=== PATIENT | male | born 1955 | race Caucasian/White ===

== ENCOUNTER 2020-02-10 22:51 | Emergency (ER) | payer BC ==
[~2020-02-10] VITALS: Ht 172.7 cm; Wt 65.0 kg
[2020-02-10] MEDS ORDERED: methylPREDNISolone sod succ 125mg/2ml vial IV ONE (23:20)
[2020-02-10] MEDS ORDERED: ipratropium/albuterol 3ml nebule NEB ONE (23:20)
[2020-02-10] MEDS ORDERED: triamcinolone acetonide 40mg/ml inj IM ONE (23:20)
[2020-02-10 23:43] LABS: BASOPHILS # (AUTO) 0.2 X10'3 (0-0.2); EOSINOPHILS # (AUTO) 0.5 X10'3 (0-0.9); EOSINOPHILS % (AUTO) 3.2 % (0-6); HEMATOCRIT 50.4 % (42.0-52.0); HEMOGLOBIN 16.7 g/dl (14.0-17.9); LYMPHOCYTES # (AUTO) 4.3 X10'3 (1.1-4.8); LYMPHOCYTES % (AUTO) 28.9 % (21-51); MEAN CORPUSCULAR HEMOGLOBIN 31.2 PG (27.0-31.0); MEAN CORPUSCULAR HGB CONC 33.1 g/dL (33.0-36.5); MEAN CORPUSCULAR VOLUME 94.4 FL (78-98); MEAN PLATELET VOLUME 8.1 FL (7.4-10.4); MONOCYTES # (AUTO) 1.1 X10'3 (0-0.9); MONOCYTES % (AUTO) 7.4 % (2-12); NEUTROPHILS # (AUTO) 8.9 X10'3 (1.8-7.7); NEUTROPHILS % (AUTO) 59.5 % (42-75); PLATELET COUNT 266 X10'3 (140-440); RED BLOOD COUNT 5.34 X10'6 (4.70-6.10); RED CELL DISTRIBUTION WIDTH 13.8 % (11.5-14.5); WHITE BLOOD COUNT 14.9 X10'3 (4.5-11.0)
[2020-02-11 00:02] LABS: ALANINE AMINOTRANSFERASE 32 U/L (12-78); ALBUMIN 3.6 G/DL (3.4-5.0); ALBUMIN/GLOBULIN RATIO 0.9 (1.1-1.5); ALKALINE PHOSPHATASE 88 IU/L (46-116); ANION GAP 7 (8-16); ASPARTATE AMINO TRANSFERASE 13 U/L (10-37); BILIRUBIN,TOTAL 0.2 MG/DL (0.1-1.0); BLOOD UREA NITROGEN 25 MG/DL (7-18); BUN/CREATININE RATIO 22.3 (5.4-32.0); CALCIUM 9.1 MG/DL (8.5-10.1); CHLORIDE 108 MMOL/L (99-107); CREATININE 1.12 MG/DL (0.60-1.10); GLUCOSE 94 MG/DL (70-104); POTASSIUM 3.7 MMOL/L (3.5-5.1); SODIUM 143 MMOL/L (135-145); TOTAL CARBON DIOXIDE 28.3 MMOL/L (24-32); TOTAL PROTEIN 7.5 G/DL (6.4-8.2); eGFR 66 ML/MIN
[2020-02-11] MEDS ORDERED: FLUT1BLS4 INH (00:03)
[2020-02-11] MEDS ORDERED: AZIT-63 PO (00:04)
[2020-02-11 00:14] VITALS: BP 169/80
== END 2020-02-11 00:18 | disposition home or self-care (01) ==
LOC: ER 22:52
DX: J44.1 Chronic obstructive pulmonary disease with (acute) exacerbation (principal); R06.02 Shortness of breath; R06.2 Wheezing; G89.29 Other chronic pain
CPT/HCPCS: 36415; 71045; 80053; 83880; 84484; 85025; 93005; 94640; 96372; 96374; 99285; J2930; J3301; 94760

== ENCOUNTER 2020-06-05 14:44 | Emergency (ER) | payer BC ==
[~2020-06-05] VITALS: Ht 172.7 cm; Wt 69.1 kg
[~2020-06-05 14:44] MED LIST: FLUT1BLS4 INH
[2020-06-05] MEDS ORDERED: triamcinolone acetonide 40mg/ml inj IM ONE (16:25)
[2020-06-05] MEDS ORDERED: IPRA3AMP31 IH (16:56)
[2020-06-05] MEDS ORDERED: PRED20TA PO (16:56)
[2020-06-05 17:02] VITALS: BP 146/77
== END 2020-06-05 17:12 | disposition home or self-care (01) ==
LOC: ER 14:45 → EDSEX 14:45 → ER 17:12
DX: R06.02 Shortness of breath (principal); J44.9 Chronic obstructive pulmonary disease, unspecified; G89.29 Other chronic pain; F17.200 Nicotine dependence, unspecified, uncomplicated; Z79.899 Other long term (current) drug therapy
CPT/HCPCS: 93005; 96372; 99283; J3301

== ENCOUNTER 2020-06-07 12:14 | Inpatient (IN) | payer BC ==
[~2020-06-07] VITALS: Ht 160 cm; Wt 66.2 kg
[~2020-06-07 12:14] MED LIST changes: +IPRA3AMP31 IH; +PRED20TA PO
[2020-06-07] MEDS ORDERED: ipratropium 0.5 MG/2.5ML nebule IH ONE (12:25)
[2020-06-07] MEDS ORDERED: nitroGLYCERIN-Tridil 50MG/D5W 250 ML IV PRN (12:25)
[2020-06-07] MEDS ORDERED: methylPREDNISolone sod succ 125mg/2ml vial IV ONE (12:35)
[2020-06-07 12:36] LABS: ABG BASE EXCESS -4.9 mmol/L (-2.0-2.0); ABG HCO3 25.1 mmol/L (22.0-26.0); ABG OXYGEN SATURATION 98.7 % (94-97); ABG PO2 (T) 168.4 mmHg (75.0-100.0); ALLEN'S TEST POSITIVE; FCOHb 0.4 % (0.0-3.9); FMetHb 0.4 % (0.0-1.5); FO2Hb 97.9 % (94-97); RESPIRATORY RATE 18 b/min; TOTAL HEMOGLOBIN 17.1 G/dl (12.0-16.0)
[2020-06-07] MEDS: albuterol 2.5 MG/3 ML nebule CONTNEB PRN ×2 (12:37→14:09)
[2020-06-07 12:41] LABS: BASOPHILS # (AUTO) 0.1 X10'3 (0-0.2); BASOPHILS % (AUTO) 0.5 % (0-1); EOSINOPHILS # (AUTO) 0.2 X10'3 (0-0.9); EOSINOPHILS % (AUTO) 1.4 % (0-6); HEMATOCRIT 50.7 % (35.0-45.0); HEMOGLOBIN 16.8 g/dl (12.0-16.0); LYMPHOCYTES # (AUTO) 3.7 X10'3 (1.1-4.8); LYMPHOCYTES % (AUTO) 29.9 % (21-51); MEAN CORPUSCULAR HEMOGLOBIN 31.6 PG (27.0-31.0); MEAN CORPUSCULAR HGB CONC 33.1 g/dL (33.0-36.5); MEAN CORPUSCULAR VOLUME 95.3 FL (78-98); MEAN PLATELET VOLUME 8.5 FL (7.4-10.4); MONOCYTES # (AUTO) 1.1 X10'3 (0-0.9); MONOCYTES % (AUTO) 8.8 % (2-12); NEUTROPHILS # (AUTO) 7.3 X10'3 (1.8-7.7); NEUTROPHILS % (AUTO) 59.4 % (42-75); PLATELET COUNT 318 X10'3 (140-440); RED BLOOD COUNT 5.31 X10'6 (4.20-5.60); RED CELL DISTRIBUTION WIDTH 13.6 % (11.5-14.5); WHITE BLOOD COUNT 12.2 X10'3 (4.5-11.0)
[2020-06-07 12:58] LABS: MAGNESIUM 2.3 MG/DL (1.5-2.4)
[2020-06-07 13:17] LABS: ALANINE AMINOTRANSFERASE 52 U/L (12-78); ALBUMIN/GLOBULIN RATIO 0.9 (1.1-1.5); ALKALINE PHOSPHATASE 104 IU/L (46-116); ANION GAP 9 (8-16); ASPARTATE AMINO TRANSFERASE 27 U/L (10-37); BILIRUBIN,TOTAL 0.3 MG/DL (0.1-1.0); BLOOD UREA NITROGEN 20 MG/DL (7-18); CALCIUM 9.8 MG/DL (8.5-10.1); CHLORIDE 107 MMOL/L (99-107); GLUCOSE 211 MG/DL (70-104); POTASSIUM 3.9 MMOL/L (3.5-5.1); SODIUM 144 MMOL/L (135-145); TOTAL CARBON DIOXIDE 28.1 MMOL/L (24-32); TOTAL PROTEIN 8.3 G/DL (6.4-8.2); eGFR 55 ML/MIN
[2020-06-07 14:00] LABS: ABG BASE EXCESS -1.9 mmol/L (-2.0-2.0); ABG OXYGEN SATURATION 94.1 % (94-97); ABG PCO2 (T) 49.8 mmHg (32.0-45.0); ABG PO2 (T) 74.7 mmHg (75.0-100.0); ALLEN'S TEST POSITIVE; FCOHb 0.3 % (0.0-3.9); FMetHb 0.2 % (0.0-1.5); FO2Hb 93.6 % (94-97); RESPIRATORY RATE 18 b/min; TOTAL HEMOGLOBIN 16.9 G/dl (12.0-16.0)
[2020-06-07] MEDS ORDERED: albuterol 2.5 MG/3 ML nebule CONTNEB PRN (14:10)
[2020-06-07] MEDS ORDERED: HYDROcodone/acetaminophen 10/325mg tab PO PRN (14:30)
[2020-06-07] MEDS ORDERED: potassium Cl 20 mEq SR tablet PO PRN ×2 (14:30)
[2020-06-07] MEDS ORDERED: magnesium Cl slow-release 64mg tablet PO PRN (14:30)
[2020-06-07] MEDS ORDERED: ondansetron/PF 4mg/2ml inj IV PRN (14:30)
[2020-06-07] MEDS ORDERED: bisacodyl 10mg suppository rectal RC PRN (14:30)
[2020-06-07] MEDS ORDERED: mag hydrox/Alum hydrox/simeth 30ml oral suspension PO PRN (14:30)
[2020-06-07] MEDS ORDERED: magnesium 4gm in 100ml NS 100 ML IV PRN (14:30)
[2020-06-07] MEDS ORDERED: magnesium hydroxide 30ml (MOM) UD suspension PO PRN (14:30)
[2020-06-07] MEDS ORDERED: HYDROcodone/acetaminophen 5mg/325mg tablet PO PRN (14:30)
[2020-06-07] MEDS ORDERED: potassium CL 10mEq/100ml bag 100 ML IV PRN ×2 (14:30)
[2020-06-07] MEDS ORDERED: metoclopramide 5 mg/ml inj IV PRN (14:30)
[2020-06-07] MEDS ORDERED: magnesium 2GM in 50ml NS 50 ML IV PRN (14:30)
[2020-06-07] MEDS ORDERED: acetaminophen 325mg tablet PO PRN ×2 (14:30)
--- NOTE | 2020-06-07 14:37 | NUR ---
Dr. Castro updated on pt BP. Ok with SBP <200 at this time.
[2020-06-07] MEDS: ipratropium/albuterol 3ml nebule NEB SCH ×3 (15:00→23:18)
[2020-06-07] MEDS ORDERED: FENT-90 TOP (15:08)
[2020-06-07] MEDS ORDERED: GABA-534 PO (15:08)
[2020-06-07] MEDS ORDERED: PRED20TA PO (15:08)
[2020-06-07] MEDS ORDERED: ALBU6.7H9 IH (15:08)
[2020-06-07] MEDS ORDERED: OXYC1TAB17 PO (15:09)
--- NOTE | 2020-06-07 15:22 | NUR ---
Patient in room ED 5. I have received report from Stephanie TOLEDO and had the opportunity to ask questions and assume patient care.
[2020-06-07 16:00] VITALS: BP 164/90
--- NOTE | 2020-06-07 16:00 | NUR ---
Pt arrived to room 3013A. Pt's vitals; 164/99, HR 110, RR 28, O2 98% on bipap 50% FIo2. Will continue to monitor Pt.
[2020-06-07] MEDS: normal saline 1000ml 1,000 ML IV SCH (16:19)
--- NOTE | 2020-06-07 16:23 | NUR ---
PAGER ID: [phone] MESSAGE: Re: Cindi Breen. Room: 301. Do you want blood cultures drawn before I give the antibiotics? -Dao [facility] #[id number] Dr. Chamorro paged concerning blood cultures and first set of ABX
[2020-06-07] MEDS: CefTRIAXone/D5W-Rocephin 1gm 50 ML IV SCH (16:53)
[2020-06-07] MEDS: HYDROmorphone inj. 0.5 MG/0.5 ML DISP.SYRIN IV PRN (17:42)
[2020-06-07 18:00] VITALS: BP_SYST 161; BP_SYST 84; BP_DIAS 121; BP_DIAS 54
--- NOTE | 2020-06-07 18:25 | NUR ---
Patient in room PCU 3013. I have received report from Dao TOLDEO and had the opportunity to ask questions and assume patient care.
--- NOTE | 2020-06-07 18:32 | NUR ---
Problems reprioritized. Patient report given, questions answered & plan of care reviewed with Sebastien TOLEDO.
[2020-06-07] MEDS: azithromycin/NS 500mg/250ml 250 ML IV SCH (19:05)
[2020-06-07] MEDS: methylPREDNISolone sod succ 125mg/2ml vial IV SCH (19:06)
[2020-06-07] MEDS: famotidine/PF 10 mg/ml inj IV SCH (19:06)
[2020-06-07] MEDS: fentaNYL 12 MCG/hour patch.TD72 TD SCH (19:29)
[2020-06-07] MEDS ORDERED: methylPREDNISolone sod succ 125mg/2ml vial IV SCH (20:00)
[2020-06-07] MEDS ORDERED: famotidine 20mg tablet PO SCH (20:00)
[2020-06-07] MEDS: K and/or MAG REPLACEMENT MC SCH (20:00)
[2020-06-07] MEDS ORDERED: temazepam 15mg capsule PO PRN (21:00)
[2020-06-07 22:00] VITALS: BP 146/83
[2020-06-07] MEDS: oxyCODONE/APAP 10/325mg tablet PO PRN ×2 (22:47→23:43)
[2020-06-07] MEDS: LORazepam 0.5 MG tablet PO PRN (23:00)
[2020-06-08] VITALS (7 sets, daily range): BP systolic 127–198; BP diastolic 63–88
[2020-06-08] MEDS: methylPREDNISolone sod succ 125mg/2ml vial IV SCH ×4 (01:24→19:36)
[2020-06-08 01:30] LABS: BASOPHILS % (AUTO) 0.1 % (0-1); EOSINOPHILS % (AUTO) 0 % (0-6); HEMATOCRIT 46.3 % (35.0-45.0); HEMOGLOBIN 15.3 g/dl (12.0-16.0); LYMPHOCYTES # (AUTO) 0.4 X10'3 (1.1-4.8); LYMPHOCYTES % (AUTO) 3.4 % (21-51); MEAN CORPUSCULAR HEMOGLOBIN 31.5 PG (27.0-31.0); MEAN CORPUSCULAR HGB CONC 33.1 g/dL (33.0-36.5); MEAN PLATELET VOLUME 8.4 FL (7.4-10.4); MONOCYTES # (AUTO) 0.2 X10'3 (0-0.9); MONOCYTES % (AUTO) 1.5 % (2-12); PLATELET COUNT 261 X10'3 (140-440); RED BLOOD COUNT 4.87 X10'6 (4.20-5.60); RED CELL DISTRIBUTION WIDTH 13.8 % (11.5-14.5); WHITE BLOOD COUNT 12.6 X10'3 (4.5-11.0)
[2020-06-08 01:44] LABS: ALANINE AMINOTRANSFERASE 44 U/L (12-78); ALBUMIN 3.5 G/DL (3.4-5.0); ALBUMIN/GLOBULIN RATIO 0.9 (1.1-1.5); ALKALINE PHOSPHATASE 90 IU/L (46-116); ANION GAP 8 (8-16); ASPARTATE AMINO TRANSFERASE 19 U/L (10-37); BILIRUBIN,TOTAL 0.3 MG/DL (0.1-1.0); BLOOD UREA NITROGEN 16 MG/DL (7-18); BUN/CREATININE RATIO 16.3 (6.6-38.0); CHLORIDE 107 MMOL/L (99-107); CREATININE 0.98 MG/DL (0.40-0.90); GLUCOSE 231 MG/DL (70-104); POTASSIUM 4.3 MMOL/L (3.5-5.1); SODIUM 141 MMOL/L (135-145); TOTAL CARBON DIOXIDE 26.2 MMOL/L (24-32); TOTAL PROTEIN 7.3 G/DL (6.4-8.2); eGFR 57 ML/MIN
--- NOTE | 2020-06-08 02:01 | NUR ---
Patient refusing BiPap. Educated patient, patient continued to refuse BiPap.
--- NOTE | 2020-06-08 02:25 | NUR ---
Paged Dr. Cardoso [place] [phone] Cindi Breen 65F, here for ARF & COPD exacerbation. BP 167/79 and no PRN ordered. Pt refusing BiPap d/t anxiety. Do you want an ABG in AM since no BiPap all night?
[2020-06-08] MEDS: ipratropium/albuterol 3ml nebule NEB PRN (03:40)
[2020-06-08] MEDS: hydrALAZINE 20mg/ml inj. IV PRN (04:36)
[2020-06-08] MEDS: normal saline 1000ml 1,000 ML IV SCH ×2 (04:37→19:06)
--- NOTE | 2020-06-08 06:11 | NUR ---
Orientee documentation: I have reviewed and agree with all interventions, assessments performed and documented by Oriana TOLEDO.
--- NOTE | 2020-06-08 06:45 | NUR ---
Problems reprioritized. Patient report given, questions answered & plan of care reviewed with Maria Del Carmen TOLEDO.
--- NOTE | 2020-06-08 06:58 | NUR ---
Patient in room PCU 3013. I have received report from Sebastien TOLEDO and had the opportunity to ask questions and assume patient care.
[2020-06-08] MEDS: enoxaparin 40mg/0.4ml syringe SUBCUT SCH (08:11)
[2020-06-08] MEDS: oxyCODONE/APAP 10/325mg tablet PO PRN ×3 (08:11→19:38)
[2020-06-08] MEDS: famotidine/PF 10 mg/ml inj IV SCH ×2 (08:11→19:41)
[2020-06-08] MEDS: azithromycin/NS 500mg/250ml 250 ML IV SCH (08:12)
[2020-06-08] MEDS: CefTRIAXone/D5W-Rocephin 1gm 50 ML IV SCH (08:12)
[2020-06-08] MEDS: K and/or MAG REPLACEMENT MC SCH ×2 (08:20→20:00)
--- NOTE | 2020-06-08 08:29 | NUR ---
PAGER ID: [phone] MESSAGE: Pt [phone] expressed wish to night nurse that he wants [facility]. Elly [phone] can make decisions, can you call her? Thanks, Maria Del Carmen BENSON [phone] Addendum: 06/08/20 at 0829 by Maria Del Carmen Mayberry RN above note in error, wrong patient
[2020-06-08] MEDS: ipratropium/albuterol 3ml nebule NEB SCH ×5 (08:48→23:25)
--- NOTE | 2020-06-08 09:00 | NUR ---
RT NOTIFIED ABOUT ABG ORDER, RT JUST COMPLETED PATIENTS SVN TX ON OXYGEN, RT WILL RETURN TO DO ABG AT A LATER TIME TO GET AN ACCURATE GAS. Addendum: 06/08/20 at 0915 by Terri Rand RT Amended: Links added.
[2020-06-08 09:41] LABS: D-DIMER 0.28 MG/L FEU (0-0.50)
[2020-06-08] MEDS: LORazepam 0.5 MG tablet PO PRN ×2 (09:51→20:59)
--- NOTE | 2020-06-08 16:53 | NUR ---
ABG ORDER FROM THIS AM WAS NOT COMPLETED. PATIENT AGREED TO USE BIPAP AND ABG NO LONGER INDICATED. RT WILL CONTINUE TO MONITOR PATIENT.
--- NOTE | 2020-06-08 18:25 | NUR ---
Problems reprioritized. Patient report given, questions answered & plan of care reviewed with Juliana TOLEDO.
--- NOTE | 2020-06-08 19:18 | NUR ---
Patient in room PCU 3013. I have received report from Maria Del Carmen TOLEDO and had the opportunity to ask questions and assume patient care.
[2020-06-08] MEDS: lactobacillus rhamnosus 10,000 MMU CELLS/CAPSULE PO SCH (19:37)
--- NOTE | 2020-06-08 23:30 | NUR ---
Paged hospitalist for patients persistent coughing that causes boughts of hypertension. [id number] Catie, DX:ARF,CHF exac and hypoxemia. Patient is continuously coughing which causes her to have BP spikes up into the high 180-200 systolic. Can we do tensalon pearles or anything to aid the persistent coughing? thank you Juliana [phone]
--- NOTE | 2020-06-08 23:47 | NUR ---
Problems reprioritized. Patient report given, questions answered & plan of care reviewed with Chey TOLEDO. Patient stable at transfer of care
[2020-06-08] MEDS: benzonatate 100mg capsule PO PRN (23:55)
[2020-06-08] MEDS: guaiFENesin/codeine phos 10ml UD oral syrup PO PRN (23:55)
[2020-06-09] VITALS (12 sets, daily range): BP systolic 105–207; BP diastolic 66–116
[2020-06-09] MEDS: methylPREDNISolone sod succ 125mg/2ml vial IV SCH ×4 (02:19→19:37)
[2020-06-09] MEDS: normal saline 1000ml 1,000 ML IV SCH ×2 (06:10→23:25)
[2020-06-09 06:15] LABS: BASOPHILS % (AUTO) 0.2 % (0-1); EOSINOPHILS % (AUTO) 0 % (0-6); HEMATOCRIT 40.7 % (35.0-45.0); HEMOGLOBIN 13.5 g/dl (12.0-16.0); LYMPHOCYTES # (AUTO) 0.6 X10'3 (1.1-4.8); LYMPHOCYTES % (AUTO) 5.3 % (21-51); MEAN CORPUSCULAR HEMOGLOBIN 31.4 PG (27.0-31.0); MEAN CORPUSCULAR HGB CONC 33.3 g/dL (33.0-36.5); MEAN CORPUSCULAR VOLUME 94.4 FL (78-98); MEAN PLATELET VOLUME 8.5 FL (7.4-10.4); MONOCYTES # (AUTO) 0.4 X10'3 (0-0.9); MONOCYTES % (AUTO) 3.2 % (2-12); NEUTROPHILS # (AUTO) 10.8 X10'3 (1.8-7.7); NEUTROPHILS % (AUTO) 91.3 % (42-75); PLATELET COUNT 241 X10'3 (140-440); RED BLOOD COUNT 4.32 X10'6 (4.20-5.60); WHITE BLOOD COUNT 11.8 X10'3 (4.5-11.0)
--- NOTE | 2020-06-09 06:34 | NUR ---
Patient in room PCU 3013. I have received report from Chey TOLEDO and had the opportunity to ask questions and assume patient care.
[2020-06-09 06:47] LABS: ALANINE AMINOTRANSFERASE 56 U/L (12-78); ALBUMIN 2.9 G/DL (3.4-5.0); ALBUMIN/GLOBULIN RATIO 0.9 (1.1-1.5); ALKALINE PHOSPHATASE 70 IU/L (46-116); ANION GAP 8 (8-16); ASPARTATE AMINO TRANSFERASE 26 U/L (10-37); BILIRUBIN,TOTAL 0.3 MG/DL (0.1-1.0); BLOOD UREA NITROGEN 18 MG/DL (7-18); BUN/CREATININE RATIO 19.4 (6.6-38.0); CALCIUM 8.4 MG/DL (8.5-10.1); CHLORIDE 109 MMOL/L (99-107); CREATININE 0.93 MG/DL (0.40-0.90); GLUCOSE 201 MG/DL (70-104); MAGNESIUM 2.2 MG/DL (1.5-2.4); POTASSIUM 4.3 MMOL/L (3.5-5.1); SODIUM 143 MMOL/L (135-145); TOTAL CARBON DIOXIDE 26.3 MMOL/L (24-32); TOTAL PROTEIN 6.3 G/DL (6.4-8.2); eGFR 60 ML/MIN
[2020-06-09] MEDS: guaiFENesin/codeine phos 10ml UD oral syrup PO PRN ×4 (07:17→23:28)
[2020-06-09] MEDS: benzonatate 100mg capsule PO PRN ×2 (07:18→17:19)
[2020-06-09] MEDS: lactobacillus rhamnosus 10,000 MMU CELLS/CAPSULE PO SCH ×2 (07:18→19:41)
[2020-06-09] MEDS: enoxaparin 40mg/0.4ml syringe SUBCUT SCH (07:19)
[2020-06-09] MEDS: famotidine/PF 10 mg/ml inj IV SCH (07:19)
[2020-06-09] MEDS: hydrALAZINE 20mg/ml inj. IV PRN ×2 (07:19→12:57)
[2020-06-09] MEDS: CefTRIAXone/D5W-Rocephin 1gm 50 ML IV SCH (07:19)
[2020-06-09] MEDS: ipratropium/albuterol 3ml nebule NEB SCH ×5 (07:38→23:35)
[2020-06-09] MEDS: K and/or MAG REPLACEMENT MC SCH ×2 (08:00→20:00)
[2020-06-09] MEDS: LORazepam 0.5 MG tablet PO PRN ×3 (08:16→23:31)
[2020-06-09] MEDS: azithromycin/NS 500mg/250ml 250 ML IV SCH (08:16)
[2020-06-09] MEDS: oxyCODONE/APAP 10/325mg tablet PO PRN ×2 (11:54→19:48)
--- NOTE | 2020-06-09 13:14 | NUR ---
Lab reports positive blood cultures in aerobic bottle at 44 hours, gram positive cocci in clusters.
--- NOTE | 2020-06-09 18:52 | NUR ---
Problems reprioritized. Patient report given, questions answered & plan of care reviewed with Enid.
--- NOTE | 2020-06-09 18:55 | NUR ---
Patient in room PCU 3013. I have received report from CRISELDA TOLEDO and had the opportunity to ask questions and assume patient care.
[2020-06-09] MEDS: famotidine 20mg tablet PO SCH (19:40)
[2020-06-09] MEDS: guaiFENesin ER 600mg tablet PO SCH (19:41)
[2020-06-09] MEDS: fentaNYL 12 MCG/hour patch.TD72 TD SCH (20:55)
[2020-06-10 02:00] VITALS: BP 159/91
[2020-06-10] MEDS: methylPREDNISolone sod succ 125mg/2ml vial IV SCH ×2 (02:30→07:13)
[2020-06-10] MEDS: benzonatate 100mg capsule PO PRN ×2 (02:42→22:11)
[2020-06-10 06:00] VITALS: BP 167/81
--- NOTE | 2020-06-10 06:29 | NUR ---
Problems reprioritized. Patient report given, questions answered & plan of care reviewed with SHANELLE TOLEDO.
--- NOTE | 2020-06-10 06:44 | NUR ---
Patient in room PCU 3013. I have received report from Keith and had the opportunity to ask questions and assume patient care.
[2020-06-10 07:01] LABS: BASOPHILS % (AUTO) 0 % (0-1); EOSINOPHILS % (AUTO) 0 % (0-6); HEMATOCRIT 42.8 % (35.0-45.0); HEMOGLOBIN 14.3 g/dl (12.0-16.0); LYMPHOCYTES # (AUTO) 0.4 X10'3 (1.1-4.8); LYMPHOCYTES % (AUTO) 4.3 % (21-51); MEAN CORPUSCULAR HGB CONC 33.4 g/dL (33.0-36.5); MEAN CORPUSCULAR VOLUME 95.8 FL (78-98); MEAN PLATELET VOLUME 8.4 FL (7.4-10.4); MONOCYTES # (AUTO) 0.4 X10'3 (0-0.9); MONOCYTES % (AUTO) 4.2 % (2-12); NEUTROPHILS # (AUTO) 9.1 X10'3 (1.8-7.7); NEUTROPHILS % (AUTO) 91.5 % (42-75); PLATELET COUNT 246 X10'3 (140-440); RED BLOOD COUNT 4.46 X10'6 (4.20-5.60); RED CELL DISTRIBUTION WIDTH 13.7 % (11.5-14.5)
[2020-06-10] MEDS: guaiFENesin ER 600mg tablet PO SCH ×2 (07:13→21:29)
[2020-06-10] MEDS: famotidine 20mg tablet PO SCH ×2 (07:13→21:30)
[2020-06-10] MEDS: lactobacillus rhamnosus 10,000 MMU CELLS/CAPSULE PO SCH ×2 (07:13→21:29)
[2020-06-10] MEDS: enoxaparin 40mg/0.4ml syringe SUBCUT SCH (07:14)
[2020-06-10] MEDS: CefTRIAXone/D5W-Rocephin 1gm 50 ML IV SCH (07:16)
[2020-06-10 07:20] LABS: ALANINE AMINOTRANSFERASE 72 U/L (12-78); ALBUMIN 3.1 G/DL (3.4-5.0); ALKALINE PHOSPHATASE 67 IU/L (46-116); ANION GAP 7 (8-16); ASPARTATE AMINO TRANSFERASE 34 U/L (10-37); BILIRUBIN,TOTAL 0.3 MG/DL (0.1-1.0); BLOOD UREA NITROGEN 17 MG/DL (7-18); BUN/CREATININE RATIO 18.5 (6.6-38.0); CALCIUM 9.1 MG/DL (8.5-10.1); CHLORIDE 108 MMOL/L (99-107); CREATININE 0.92 MG/DL (0.40-0.90); GLUCOSE 198 MG/DL (70-104); MAGNESIUM 2.3 MG/DL (1.5-2.4); POTASSIUM 3.9 MMOL/L (3.5-5.1); SODIUM 144 MMOL/L (135-145); TOTAL CARBON DIOXIDE 29.4 MMOL/L (24-32); TOTAL PROTEIN 6.3 G/DL (6.4-8.2); eGFR 61 ML/MIN
[2020-06-10] MEDS: K and/or MAG REPLACEMENT MC SCH ×2 (08:00→20:00)
[2020-06-10] MEDS: ipratropium/albuterol 3ml nebule NEB SCH ×5 (08:35→23:44)
[2020-06-10] MEDS ORDERED: furosemide 20 MG/2 ML vial IV ONE (09:05)
[2020-06-10] MEDS: cloNIDine 0.1 mg tablet PO SCH ×3 (09:46→21:00)
[2020-06-10] MEDS: guaiFENesin/codeine phos 10ml UD oral syrup PO PRN (09:46)
[2020-06-10 11:00] VITALS: BP 199/95
[2020-06-10] MEDS: hydrALAZINE 20mg/ml inj. IV PRN (11:18)
[2020-06-10] MEDS: azithromycin/NS 500mg/250ml 250 ML IV SCH (11:19)
[2020-06-10] MEDS: normal saline 1000ml 1,000 ML IV SCH ×2 (14:00→21:27)
[2020-06-10 15:00] VITALS: BP 149/77
[2020-06-10] MEDS: oxyCODONE/APAP 10/325mg tablet PO PRN ×2 (15:25→22:11)
--- NOTE | 2020-06-10 18:26 | NUR ---
Problems reprioritized. Patient report given, questions answered & plan of care reviewed with Edith Tang (Surg Float).
--- NOTE | 2020-06-10 18:56 | NUR ---
I have received report from Ninoska TOLEDO and had the opportunity to ask questions and assume patient care.
[2020-06-10 20:00] VITALS: BP 110/67
[2020-06-10 23:29] VITALS: BP 117/71
[2020-06-11 02:00] VITALS: BP 151/73
[2020-06-11] MEDS: guaiFENesin/codeine phos 10ml UD oral syrup PO PRN ×3 (02:44→20:42)
--- NOTE | 2020-06-11 06:10 | NUR ---
Problems reprioritized. Patient report given, questions answered & plan of care reviewed with Emmy TOLEDO.
--- NOTE | 2020-06-11 06:37 | NUR ---
Patient in room U 3013. I have received report from PARIS Sharma and had the opportunity to ask questions and assume patient care. Patient awake in bed and in no acute distress.
[2020-06-11 07:00] VITALS: BP 168/102
[2020-06-11 07:06] LABS: BASOPHILS % (AUTO) 0.1 % (0-1); EOSINOPHILS # (AUTO) 0.1 X10'3 (0-0.9); EOSINOPHILS % (AUTO) 0.6 % (0-6); HEMATOCRIT 44.5 % (35.0-45.0); HEMOGLOBIN 14.9 g/dl (12.0-16.0); LYMPHOCYTES % (AUTO) 20.5 % (21-51); MEAN CORPUSCULAR HEMOGLOBIN 31.8 PG (27.0-31.0); MEAN CORPUSCULAR HGB CONC 33.5 g/dL (33.0-36.5); MEAN PLATELET VOLUME 8.3 FL (7.4-10.4); MONOCYTES # (AUTO) 0.9 X10'3 (0-0.9); MONOCYTES % (AUTO) 9.5 % (2-12); NEUTROPHILS # (AUTO) 6.6 X10'3 (1.8-7.7); NEUTROPHILS % (AUTO) 69.3 % (42-75); PLATELET COUNT 207 X10'3 (140-440); RED BLOOD COUNT 4.69 X10'6 (4.20-5.60); RED CELL DISTRIBUTION WIDTH 13.7 % (11.5-14.5); WHITE BLOOD COUNT 9.6 X10'3 (4.5-11.0)
[2020-06-11 07:25] LABS: ALANINE AMINOTRANSFERASE 122 U/L (12-78); ALBUMIN 3.1 G/DL (3.4-5.0); ALBUMIN/GLOBULIN RATIO 0.9 (1.1-1.5); ALKALINE PHOSPHATASE 66 IU/L (46-116); ANION GAP 6 (8-16); ASPARTATE AMINO TRANSFERASE 43 U/L (10-37); BILIRUBIN,TOTAL 0.5 MG/DL (0.1-1.0); BLOOD UREA NITROGEN 17 MG/DL (7-18); BUN/CREATININE RATIO 17.5 (6.6-38.0); CALCIUM 8.7 MG/DL (8.5-10.1); CHLORIDE 107 MMOL/L (99-107); CREATININE 0.97 MG/DL (0.40-0.90); GLUCOSE 93 MG/DL (70-104); MAGNESIUM 2.2 MG/DL (1.5-2.4); SODIUM 145 MMOL/L (135-145); TOTAL CARBON DIOXIDE 31.9 MMOL/L (24-32); TOTAL PROTEIN 6.4 G/DL (6.4-8.2); eGFR 57 ML/MIN
--- NOTE | 2020-06-11 07:32 | NUR ---
Paged Dr. Hartmann regarding critical result of K. PAGER ID: [phone] MESSAGE: [phone]. Cindi Breen. Critical result of K 3.0. May I restart on electrolyte replacement protocol? Thank you. Emmy TOLEDO x [phone]
[2020-06-11] MEDS: ipratropium/albuterol 3ml nebule NEB SCH ×5 (07:55→23:28)
[2020-06-11] MEDS ORDERED: azithromycin 250mg tablet PO SCH (08:00)
[2020-06-11] MEDS: K and/or MAG REPLACEMENT MC SCH ×2 (08:00→20:00)
[2020-06-11] MEDS ORDERED: furosemide 20 MG/2 ML vial IV ONE (08:50)
[2020-06-11] MEDS ORDERED: potassium Cl 20 mEq SR tablet PO PRN (08:50)
[2020-06-11] MEDS ORDERED: magnesium 4gm in 100ml NS 100 ML IV PRN (08:50)
[2020-06-11] MEDS ORDERED: magnesium Cl slow-release 64mg tablet PO PRN (08:50)
[2020-06-11] MEDS ORDERED: potassium Cl 40MEQ/1/2NS 520ml 520 ML IV PRN (08:50)
--- NOTE | 2020-06-11 08:57 | NUR ---
Orders to stop IV fluids, one time dose of lasix 20mg, and for 2mg morphine q4hr PRN for air hunger and to restart patient on electrolyte replacement put in per Dr. Hartmann.
[2020-06-11] MEDS: CefTRIAXone/D5W-Rocephin 1gm 50 ML IV SCH (09:20)
[2020-06-11] MEDS: enoxaparin 40mg/0.4ml syringe SUBCUT SCH (09:21)
[2020-06-11] MEDS: famotidine 20mg tablet PO SCH ×2 (09:22→20:20)
[2020-06-11] MEDS: cloNIDine 0.1 mg tablet PO SCH ×3 (09:22→20:42)
[2020-06-11] MEDS: lactobacillus rhamnosus 10,000 MMU CELLS/CAPSULE PO SCH ×2 (09:22→20:20)
[2020-06-11] MEDS: predniSONE 20 mg tablet PO SCH (09:23)
[2020-06-11] MEDS: guaiFENesin ER 600mg tablet PO SCH ×2 (09:23→20:20)
[2020-06-11] MEDS: potassium Cl 20 mEq SR tablet PO PRN ×2 (09:25→15:18)
[2020-06-11] MEDS: morphine 2 MG/ML inj. syringe IV PRN ×3 (10:03→20:43)
[2020-06-11 11:00] VITALS: BP 136/52
[2020-06-11 15:00] VITALS: BP 142/73
--- NOTE | 2020-06-11 18:30 | NUR ---
Problems reprioritized. Patient report given, questions answered & plan of care reviewed with PARIS Guerrier. Patient stable at transfer of care.
[2020-06-11 19:00] VITALS: BP 96/54
[2020-06-11] MEDS: fentaNYL 12 MCG/hour patch.TD72 TD SCH (21:45)
[2020-06-11 23:00] VITALS: BP 122/66
[2020-06-12] VITALS (7 sets, daily range): BP systolic 81–152; BP diastolic 51–81
[2020-06-12] MEDS: morphine 2 MG/ML inj. syringe IV PRN ×2 (01:30→16:44)
[2020-06-12] MEDS: ipratropium/albuterol 3ml nebule NEB PRN (02:41)
[2020-06-12] MEDS: guaiFENesin/codeine phos 10ml UD oral syrup PO PRN ×2 (05:03→14:45)
--- NOTE | 2020-06-12 05:42 | NUR ---
SUMMARY OV NIGHT EVENTS: EARLY IN SHIFT PT VERY LETHARGIC, OBTUNDED--HARD TO AROUSE--THIS WAS AFTER RETURNING FORM MRI -- RESULTS OF MRI RELATED TO MD AND NURSING NEW ORDERS WERE RECEIVED ANIBAL TELENEURO CONSULT, WHICH WAS DONE--RESULTS TO DR. YANEZ--PT REMAINS ON HEPARIN PROTOCOL WITH NO CHANGES IN DOSING AFTER 2300 LAB RESULT--THIS MORNING PT NOW KNOWS THE YEAR AND WHERE SHE IS--SHE STATES THAT SHE IS HUNGRY--DELAYED SWALLOWING NOTED EARLIER--DR. YANEZ NOTIFIED OF PT CONDITION PT TO REMAIN NPO TIL AFTER SWALLOW EVAL Addendum: 06/12/20 at 0551 by Chey Gentile RN DISREGARD PREVIOUS NOTE WHICH IS NOT ON THE CORRECT PATIENT
--- NOTE | 2020-06-12 06:00 | NUR ---
Patient in room PCU 3013. I have received report from Chey TOLEDO and had the opportunity to ask questions and assume patient care.
[2020-06-12 06:42] LABS: ALANINE AMINOTRANSFERASE 120 U/L (12-78); ALBUMIN 2.9 G/DL (3.4-5.0); ALBUMIN/GLOBULIN RATIO 0.9 (1.1-1.5); ALKALINE PHOSPHATASE 65 IU/L (46-116); ANION GAP 7 (8-16); ASPARTATE AMINO TRANSFERASE 27 U/L (10-37); BILIRUBIN,TOTAL 0.3 MG/DL (0.1-1.0); BLOOD UREA NITROGEN 18 MG/DL (7-18); BUN/CREATININE RATIO 19.4 (6.6-38.0); CALCIUM 8.8 MG/DL (8.5-10.1); CHLORIDE 106 MMOL/L (99-107); CREATININE 0.93 MG/DL (0.40-0.90); GLUCOSE 129 MG/DL (70-104); MAGNESIUM 2.3 MG/DL (1.5-2.4); POTASSIUM 3.6 MMOL/L (3.5-5.1); SODIUM 143 MMOL/L (135-145); TOTAL CARBON DIOXIDE 30.3 MMOL/L (24-32); TOTAL PROTEIN 6.1 G/DL (6.4-8.2); eGFR 60 ML/MIN
[2020-06-12 06:43] LABS: BASOPHILS % (AUTO) 0.1 % (0-1); EOSINOPHILS # (AUTO) 0.3 X10'3 (0-0.9); EOSINOPHILS % (AUTO) 2.9 % (0-6); HEMATOCRIT 44.2 % (35.0-45.0); HEMOGLOBIN 14.6 g/dl (12.0-16.0); LYMPHOCYTES # (AUTO) 2.4 X10'3 (1.1-4.8); LYMPHOCYTES % (AUTO) 22.5 % (21-51); MEAN CORPUSCULAR HEMOGLOBIN 31.2 PG (27.0-31.0); MEAN CORPUSCULAR VOLUME 94.5 FL (78-98); MEAN PLATELET VOLUME 8.4 FL (7.4-10.4); MONOCYTES % (AUTO) 9.8 % (2-12); NEUTROPHILS # (AUTO) 6.8 X10'3 (1.8-7.7); NEUTROPHILS % (AUTO) 64.7 % (42-75); PLATELET COUNT 210 X10'3 (140-440); RED BLOOD COUNT 4.68 X10'6 (4.20-5.60); RED CELL DISTRIBUTION WIDTH 13.5 % (11.5-14.5); WHITE BLOOD COUNT 10.5 X10'3 (4.5-11.0)
[2020-06-12] MEDS: ipratropium/albuterol 3ml nebule NEB SCH ×5 (07:00→23:19)
[2020-06-12] MEDS: K and/or MAG REPLACEMENT MC SCH ×2 (08:00→20:00)
[2020-06-12] MEDS: CefTRIAXone/D5W-Rocephin 1gm 50 ML IV SCH (08:01)
[2020-06-12] MEDS: predniSONE 20 mg tablet PO SCH (08:02)
[2020-06-12] MEDS: famotidine 20mg tablet PO SCH ×2 (08:02→21:39)
[2020-06-12] MEDS: guaiFENesin ER 600mg tablet PO SCH ×2 (08:02→21:39)
[2020-06-12] MEDS: HYDROmorphone inj. 0.5 MG/0.5 ML DISP.SYRIN IV PRN (08:02)
[2020-06-12] MEDS: enoxaparin 40mg/0.4ml syringe SUBCUT SCH (08:03)
[2020-06-12] MEDS: lactobacillus rhamnosus 10,000 MMU CELLS/CAPSULE PO SCH ×2 (08:03→21:39)
[2020-06-12] MEDS: cloNIDine 0.1 mg tablet PO SCH ×3 (08:03→21:39)
[2020-06-12] MEDS ORDERED: furosemide 20 MG/2 ML vial IV ONE (08:40)
--- NOTE | 2020-06-12 09:14 | NUR ---
O2 Sat at rest on room air:_91_% If below 89%: Recovery O2 Sat at rest on ___LPM:___%:___% via (mask/nasal cannula, etc..) No further documentation is necessary. If O2 Sat did not drop below 89% on room air,ambulate patient on room air. O2 Sat while ambulating on room air:_87_% Recovery O2 Sat while ambulating on _2_LPM:_91_% No further documentation is necessary. If patient does not drop below 89% while ambulating, he/she does not qualify for home O2.
--- NOTE | 2020-06-12 11:51 | NUR ---
Initial: Fair appetite, average PO Intake 50% of meals. regular diet. Meeting needs for calories and protein. Admitted with acute respiratory failure with hypercapnia, on BiPAP d/t COPD exacerbation, possible pneumonia per MD progress note. Recommend: 1. continue regular diet 2. bowel care as needed 3. wt per rx Addendum: 06/12/20 at [address] Amended: Links added.
[2020-06-12] MEDS: benzonatate 100mg capsule PO PRN (14:44)
--- NOTE | 2020-06-12 18:19 | NUR ---
Problems reprioritized. Patient report given, questions answered & plan of care reviewed with Chey TOLEDO.
[2020-06-12] MEDS: oxyCODONE/APAP 10/325mg tablet PO PRN (21:48)
[2020-06-13 03:00] VITALS: BP 152/82
[2020-06-13] MEDS: oxyCODONE/APAP 10/325mg tablet PO PRN ×2 (04:59→13:06)
--- NOTE | 2020-06-13 05:00 | NUR ---
pt very upset this morning--stated that this rn did not meet her needs during the night--accused this nurse of sleeping all night, as well as the charge nurse-- upon receiving her request for pain med, given percocet--asked if she required cough med or antianxiety agent, she told this nurse to leave her room charge nurse eve aware apologies made for the miscommunication
--- NOTE | 2020-06-13 06:57 | NUR ---
Patient in room PCU 3013. I have received report from PARIS Guerrier and had the opportunity to ask questions and assume patient care. Patient awake in bed and in no acute distress.
[2020-06-13 07:00] VITALS: BP 162/105
[2020-06-13] MEDS: K and/or MAG REPLACEMENT MC SCH (08:00)
[2020-06-13] MEDS: CefTRIAXone/D5W-Rocephin 1gm 50 ML IV SCH (08:03)
[2020-06-13] MEDS: famotidine 20mg tablet PO SCH (08:03)
[2020-06-13] MEDS: lactobacillus rhamnosus 10,000 MMU CELLS/CAPSULE PO SCH (08:04)
[2020-06-13] MEDS: predniSONE 20 mg tablet PO SCH (08:04)
[2020-06-13] MEDS: cloNIDine 0.1 mg tablet PO SCH ×2 (08:04→12:38)
[2020-06-13] MEDS: guaiFENesin ER 600mg tablet PO SCH (08:04)
[2020-06-13] MEDS: enoxaparin 40mg/0.4ml syringe SUBCUT SCH (08:05)
[2020-06-13] MEDS: ipratropium/albuterol 3ml nebule NEB SCH (08:37)
[2020-06-13] MEDS ORDERED: PRED10TA23 PO (08:52)
[2020-06-13] MEDS ORDERED: IPRA3AMP9 NEB (08:52)
[2020-06-13] MEDS ORDERED: GUAI600T45 PO (08:52)
[2020-06-13] MEDS ORDERED: CLON0.1T2 PO (08:52)
[2020-06-13] MEDS ORDERED: guaiFENesin/codeine oral syrup PO (08:52)
[2020-06-13] MEDS: guaiFENesin/codeine phos 10ml UD oral syrup PO PRN (09:33)
[2020-06-13 11:00] VITALS: BP 106/59
[2020-06-13 15:00] VITALS: BP 100/45
--- NOTE | 2020-06-13 18:25 | NUR ---
Patient stable for discharge per MD orders. All discharge instructions reviewed and questions answered appropriately. Belongings collected and sent with patient. New prescriptions e-scripted to [facility], and written prescription given to patient as well. Patient will call PCP for follow up appointment. Home oxygen was delivered to patient at the bedside by [facility] prior to discharge. Patient instructed to call for oxygen delivery at home. PIV discontinued. cardiac monitor technician discontinued. Patient wheeled down to lobby with at home O2 and was waiting in the lobby for her family to come and pick her up outside.
== END 2020-06-13 18:25 | disposition home or self-care (01) | DRG 193 ==
LOC: ER 12:14 → ED HOLD 14:29 → UNDOADMIN 14:39 → PCU 3S 15:55 → ED HOLD 15:55
PROVIDERS: ADMIT Family Medicine; ATTEND Family Medicine
PROC: 5A09357 Assistance with Respiratory Ventilation, Less than 24 Consecutive Hours, Continuous Positive Airway Pressure (ICD-10-PCS; principal; 2020-06-07)
PROC: 5A09357 Assistance with Respiratory Ventilation, Less than 24 Consecutive Hours, Continuous Positive Airway Pressure (ICD-10-PCS; 2020-06-08)
DX: J18.9 Pneumonia, unspecified organism (principal); J96.01 Acute respiratory failure with hypoxia; J96.02 Acute respiratory failure with hypercapnia; I26.09 Other pulmonary embolism with acute cor pulmonale; J44.1 Chronic obstructive pulmonary disease with (acute) exacerbation; E87.2 Acidosis; D72.829 Elevated white blood cell count, unspecified; F17.200 Nicotine dependence, unspecified, uncomplicated; Z20.828 Contact with and (suspected) exposure to other viral communicable diseases; Z53.20 Procedure and treatment not carried out because of patient's decision for unspecified reasons; I50.813 Acute on chronic right heart failure; Z79.899 Other long term (current) drug therapy
CPT/HCPCS: 36415; 36600; 71045; 80053; 82803; 83605; 83735; 83880; 84484; 85018; 85025; 85379; 85610; 87040; 87077; 87081; 87088; 87635; 93005; 94640; 94660; 94760; 94799; 96365; 96375; 97116; 97161; 97530; 99285; A7015; C9803; G0378; J0360; J0456; J0696; J1170; J1650; J1940; J2270; J2930; J3490; J7030; J7512

== ENCOUNTER 2021-02-12 18:16 | Emergency (ER) | payer BC ==
[~2021-02-12] VITALS: Ht 172.7 cm; Wt 68.1 kg
[~2021-02-12 18:16] MED LIST changes: +ALBU6.7H9 IH; +CLON0.1T2 PO; +FENT-90 TOP; -FLUT1BLS4 INH; +GUAI600T45 PO; -IPRA3AMP31 IH; +IPRA3AMP9 NEB; +OXYC1TAB17 PO; -PRED20TA PO; +guaiFENesin/codeine oral syrup PO
[2021-02-12 18:29] VITALS: BP 197/124
[2021-02-12] MEDS ORDERED: ipratropium/albuterol 3ml nebule NEB PRN (18:40)
[2021-02-12] MEDS ORDERED: albuterol 2.5 MG/3 ML nebule NEB ONE (18:40)
[2021-02-12] MEDS ORDERED: dexamethasone sod phosphate 10mg/ml inj IV STA (18:47)
[2021-02-12 19:27] LABS: ALANINE AMINOTRANSFERASE 39 U/L (12-78); ALBUMIN 3.4 G/DL (3.4-5.0); ALBUMIN/GLOBULIN RATIO 0.9 (1.1-1.5); ALKALINE PHOSPHATASE 107 IU/L (46-116); ANION GAP 11 (8-16); BILIRUBIN,TOTAL 0.5 MG/DL (0.1-1.0); BLOOD UREA NITROGEN 16 MG/DL (7-18); CHLORIDE 107 MMOL/L (99-107); GLUCOSE 144 MG/DL (70-104); POTASSIUM 3.7 MMOL/L (3.5-5.1); SODIUM 144 MMOL/L (135-145); TOTAL CARBON DIOXIDE 26.3 MMOL/L (24-32); TOTAL PROTEIN 7.1 G/DL (6.4-8.2); eGFR 55 ML/MIN
[2021-02-12 19:30] LABS: BASOPHILS # (AUTO) 0.1 X10'3 (0-0.2); BASOPHILS % (AUTO) 1.4 % (0-1); EOSINOPHILS # (AUTO) 0.5 X10'3 (0-0.9); EOSINOPHILS % (AUTO) 8.2 % (0-6); HEMATOCRIT 47.3 % (35.0-45.0); HEMOGLOBIN 15.7 g/dl (12.0-16.0); LYMPHOCYTES # (AUTO) 1.5 X10'3 (1.1-4.8); MEAN CORPUSCULAR HEMOGLOBIN 30.6 PG (27.0-31.0); MEAN CORPUSCULAR HGB CONC 33.2 g/dL (33.0-36.5); MEAN CORPUSCULAR VOLUME 92.2 FL (78-98); MEAN PLATELET VOLUME 8.1 FL (7.4-10.4); MONOCYTES # (AUTO) 0.5 X10'3 (0-0.9); MONOCYTES % (AUTO) 7.2 % (2-12); NEUTROPHILS # (AUTO) 4.1 X10'3 (1.8-7.7); NEUTROPHILS % (AUTO) 61.2 % (42-75); PLATELET COUNT 252 X10'3 (140-440); RED BLOOD COUNT 5.13 X10'6 (4.20-5.60); RED CELL DISTRIBUTION WIDTH 14.3 % (11.5-14.5); WHITE BLOOD COUNT 6.6 X10'3 (4.5-11.0)
[2021-02-12 19:41] LABS: ASPARTATE AMINO TRANSFERASE 14 U/L (10-37)
[2021-02-12] MEDS ORDERED: PRED1TAB PO (21:22)
== END 2021-02-12 21:53 | disposition home or self-care (01) ==
LOC: ER 18:17
DX: J44.1 Chronic obstructive pulmonary disease with (acute) exacerbation (principal); Z79.899 Other long term (current) drug therapy
CPT/HCPCS: 36415; 71045; 80053; 84484; 85025; 93005; 94640; 96374; 99285; J1100; 94760

== ENCOUNTER 2021-02-15 01:39 | Inpatient (IN) | payer BC ==
[2021-02-15] VITALS (9 sets, daily range): BP systolic 84–207; BP diastolic 45–111
[~2021-02-15] VITALS: Ht 165.1 cm; Wt 78.0 kg
[~2021-02-15 01:39] MED LIST changes: +PRED1TAB PO
[2021-02-15] MEDS ORDERED: ipratropium/albuterol 3ml nebule NEB PRN ×2 (01:45→13:55)
[2021-02-15] MEDS ORDERED: methylPREDNISolone sod succ 125mg/2ml vial IV ONE (01:45)
[2021-02-15] MEDS ORDERED: albuterol 2.5 MG/3 ML nebule CONTNEB PRN (01:50)
[2021-02-15] MEDS ORDERED: ipratropium 0.5 MG/2.5ML nebule IH ONE ×2 (01:50)
[2021-02-15] MEDS: albuterol 2.5 MG/3 ML nebule CONTNEB PRN ×3 (01:59→07:10)
[2021-02-15] MEDS: nitroGLYCERIN 0.4mg SUBLingual tab SL PRN ×2 (02:18→02:20)
[2021-02-15 02:40] LABS: BASOPHILS # (AUTO) 0.1 X10'3 (0-0.2); EOSINOPHILS # (AUTO) 0.5 X10'3 (0-0.9); EOSINOPHILS % (AUTO) 4.1 % (0-6); HEMATOCRIT 53.2 % (35.0-45.0); HEMOGLOBIN 17.2 g/dl (12.0-16.0); LYMPHOCYTES # (AUTO) 2.2 X10'3 (1.1-4.8); LYMPHOCYTES % (AUTO) 17.6 % (21-51); MEAN CORPUSCULAR HEMOGLOBIN 30.4 PG (27.0-31.0); MEAN CORPUSCULAR HGB CONC 32.2 g/dL (33.0-36.5); MEAN CORPUSCULAR VOLUME 94.2 FL (78-98); MEAN PLATELET VOLUME 8.5 FL (7.4-10.4); MONOCYTES # (AUTO) 0.6 X10'3 (0-0.9); MONOCYTES % (AUTO) 5.2 % (2-12); NEUTROPHILS # (AUTO) 8.8 X10'3 (1.8-7.7); NEUTROPHILS % (AUTO) 72.1 % (42-75); PLATELET COUNT 272 X10'3 (140-440); RED BLOOD COUNT 5.65 X10'6 (4.20-5.60); RED CELL DISTRIBUTION WIDTH 14.7 % (11.5-14.5); WHITE BLOOD COUNT 12.3 X10'3 (4.5-11.0)
[2021-02-15 02:48] LABS: ALANINE AMINOTRANSFERASE 43 U/L (12-78); ALBUMIN 3.9 G/DL (3.4-5.0); ALKALINE PHOSPHATASE 121 IU/L (46-116); ANION GAP 11 (8-16); ASPARTATE AMINO TRANSFERASE 18 U/L (10-37); BILIRUBIN,TOTAL 0.3 MG/DL (0.1-1.0); BLOOD UREA NITROGEN 15 MG/DL (7-18); BUN/CREATININE RATIO 15.5 (6.6-38.0); CHLORIDE 107 MMOL/L (99-107); CREATININE 0.97 MG/DL (0.40-0.90); GLUCOSE 153 MG/DL (70-104); POTASSIUM 4.1 MMOL/L (3.5-5.1); SODIUM 143 MMOL/L (135-145); eGFR 57 ML/MIN
--- NOTE | 2021-02-15 03:00 | NUR ---
Patient used bedside commode with minimal assistance. Warm blankets provided per request.
[2021-02-15 03:05] LABS: ABG BASE EXCESS -4.6 mmol/L (-2.0-2.0); ABG HCO3 22.6 mmol/L (22.0-26.0); ABG OXYGEN SATURATION 97.8 % (94-97); ABG PCO2 (T) 48.1 mmHg (32.0-45.0); ABG PO2 (T) 109.8 mmHg (75.0-100.0); ALLEN'S TEST POSITIVE; FCOHb 0.3 % (0.0-3.9); FMetHb 0.3 % (0.0-1.5); FO2Hb 97.2 % (94-97); PATIENT TEMPERATURE 36.6; RESPIRATORY RATE 12 b/min; TOTAL HEMOGLOBIN 17.5 G/dl (12.0-16.0)
[2021-02-15] MEDS ORDERED: LORazepam 2 mg/ml vial IV ONE ×2 (03:10→04:25)
[2021-02-15] MEDS ORDERED: magnesium 2GM in 50ml NS 50 ML IV ONE (03:20)
[2021-02-15] MEDS ORDERED: ondansetron 4mg rapidly disintigrating tab PO PRN (04:00)
[2021-02-15] MEDS ORDERED: HYDROmorphone inj. 0.5 MG/0.5 ML DISP.SYRIN IV PRN (04:00)
[2021-02-15] MEDS ORDERED: bisacodyl 10mg suppository rectal RC PRN (04:00)
[2021-02-15] MEDS ORDERED: mag hydrox/Alum hydrox/simeth 30ml oral suspension PO PRN (04:00)
[2021-02-15] MEDS ORDERED: diphenhydrAMINE 50 mg/ml inj IV PRN (04:00)
[2021-02-15] MEDS ORDERED: diphenhydrAMINE 25mg capsule PO PRN (04:00)
[2021-02-15] MEDS ORDERED: morphine 2 MG/ML inj. syringe IV PRN ×2 (04:00)
[2021-02-15] MEDS ORDERED: acetaminophen 325mg tablet PO PRN ×4 (04:00→13:55)
[2021-02-15] MEDS ORDERED: ondansetron/PF 4mg/2ml inj IV PRN ×2 (04:00→13:55)
[2021-02-15] MEDS ORDERED: acetaminophen 650mg rectal suppository RC PRN (04:00)
[2021-02-15] MEDS ORDERED: magnesium hydroxide 30ml (MOM) UD suspension PO PRN ×2 (04:00→13:55)
[2021-02-15] MEDS ORDERED: HYDROcodone/acetaminophen 5mg/325mg tablet PO PRN (04:00)
--- NOTE | 2021-02-15 04:16 | NUR ---
Admitting provider at bedside for patient assessment and discussion of plan of care. Patient states she used to have home oxygen "but I took myself off of it". States last use was in September.
[2021-02-15] MEDS: dextrose 5%-1/2 normal saline 1,000 ML IV SCH ×2 (04:23→22:44)
[2021-02-15] MEDS: HYDROcodone/acetaminophen 10/325mg tab PO PRN ×2 (04:23→05:07)
[2021-02-15 05:08] LABS: HEMOGLOBIN A1C 6.2 % (4.5-6.2)
[2021-02-15 05:15] LABS: CREATINE KINASE 207 U/L (26-192); LIPASE 69 U/L (73-393); MAGNESIUM 2.4 MG/DL (1.5-2.4); PHOSPHORUS 4.4 MG/DL (2.3-4.5)
--- NOTE | 2021-02-15 06:35 | NUR ---
notified dr manley pt is very anxious about her mask,want to take it off.as per md order ativian 1 mg po onces.
[2021-02-15] MEDS ORDERED: LORazepam 1 MG tablet PO ONE (06:40)
[2021-02-15] MEDS: guaiFENesin ER 600mg tablet PO SCH ×2 (06:48→20:00)
[2021-02-15] MEDS: pantoprazole 40mg Tablet.DR PO SCH (06:48)
--- NOTE | 2021-02-15 06:52 | NUR ---
pt medicated with po meds ativian ,protonix and mucinex as pt is anxious ,medicated the pt when removed the pt from bipap ,pt sounds wheezy ,able to swallow the medication .will cont to monitor the pt and reasses the anxitey level.
[2021-02-15] MEDS: ipratropium/albuterol 3ml nebule NEB SCH ×5 (07:10→22:27)
[2021-02-15] MEDS ORDERED: heparin, porcine 5000 units/ml vial SQ SCH (08:00)
[2021-02-15] MEDS: docusate sod 100mg capsule PO SCH ×2 (08:00→20:57)
[2021-02-15] MEDS: CefTRIAXone/D5W-Rocephin 1gm 50 ML IV SCH (08:01)
[2021-02-15] MEDS: hydrALAZINE 20mg/ml inj. IV SCH ×3 (08:01→20:00)
[2021-02-15] MEDS: methylPREDNISolone sod succ 125mg/2ml vial IV SCH (08:02)
--- NOTE | 2021-02-15 08:15 | NUR ---
called dr gutiérrez regarding pt condition ,pt is over excereting at this time ,abg was done at 0300 this am ,pt is tachycardic ,tachypneic 39 rr ,spo2 97 on bipap ,pt bp is elevated .as per md do stat abg and intubate if needed.
[2021-02-15] MEDS: azithromycin/NS 500mg/250ml 250 ML IV SCH (08:21)
[2021-02-15 08:27] LABS: URINE AMPHETAMINE SCREEN NEGATIVE (Neg); URINE BARBITUATE SCREEN NEGATIVE (Neg); URINE BENZODIAZEPINES SCREEN NEGATIVE (Neg); URINE CANNABINOID SCREEN NEGATIVE (Neg); URINE COCAINE SCREEN NEGATIVE (Neg); URINE METHADONE SCREEN NEGATIVE (Neg); URINE OPIATE SCREEN NEGATIVE (Neg); URINE PHENCYCLIDINE SCREEN NEGATIVE (Neg)
--- NOTE | 2021-02-15 08:30 | NUR ---
dr james and mikayla coker notified for the pt condition ,pt is having converstaion with dr james regarding her advance care for intubation and chest compression,pt stated she want to wait for intubation ,but if necessary at some point she is ready.
[2021-02-15 08:38] LABS: ABG HCO3 23.4 mmol/L (22.0-26.0); ABG PCO2 (T) 42.3 mmHg (32.0-45.0); ABG PO2 (T) 106.6 mmHg (75.0-100.0); ALLEN'S TEST POSITIVE; FCOHb 0.3 % (0.0-3.9); FMetHb 0.3 % (0.0-1.5); FO2Hb 97.4 % (94-97); TOTAL HEMOGLOBIN 17.1 G/dl (12.0-16.0)
[2021-02-15 08:41] LABS: D-DIMER 0.24 MG/L FEU (0-0.50); PARTIAL THROMBOPLASTIN TIME 27 SECONDS (22-32)
[2021-02-15 08:42] LABS: CLARITY,URINE CLEAR (Clear); COLOR,URINE STRAW (Yellow); GLUCOSE, URINE >=1000 mg/dl (Neg); KETONES,URINE NEGATIVE (Neg); LEUKOCYTE ESTERASE ,URINE NEGATIVE (Neg); NITRITES, URINE NEGATIVE (Neg); OCCULT BLOOD,URINE TRACE-INTACT (Neg); PH,URINE 5.5 (4.8-8.0); PROTEIN,URINE 30 mg/dl (Neg); UA COLLECTION TYPE VOIDED; UROBILINOGEN,URINE 0.2 E.U/dL (0.2-1.0)
--- NOTE | 2021-02-15 08:52 | NUR ---
spoke to dr gutiérrez regarding pt condition and improved abg and pt stated that she wants to wait for the intubation ,as per dr gutiérrez if she detoriate then repeat the abg and go from there ,also informed dr james at this time .
[2021-02-15 08:54] LABS: BACTERIA,URINE FEW /HPF (Neg); HYALINE CASTS 0-3 /LPF (NEGATIVE); MUCUS STRANDS NONE SEEN /LPF (Neg); RBC,URINE 0-2 /HPF (0-2); SQUAMOUS EPITHELIAL CELL,UR FEW /LPF (FEW); WBC,URINE 0-4 /HPF (0-4)
--- NOTE | 2021-02-15 09:26 | NUR ---
taken the verbal consent from pt to talk to taya regarding the pt condition and poc.
--- NOTE | 2021-02-15 09:28 | NUR ---
tried to call pt daughter taya ,didn't answer the call,voice msg is not step up .
--- NOTE | 2021-02-15 09:35 | NUR ---
pt syill flucuate btw 22-40's RR,ER dr james is aware ,not ready for intubation at this point .
--- NOTE | 2021-02-15 10:30 | NUR ---
assumed care of pt from Raudel RN, pt is resting quietly on gurney, resp even and unlabored, on bipap, tolerating well, waiting for bed upstairs
[2021-02-15] MEDS ORDERED: GABA-534 PO (13:11)
--- NOTE | 2021-02-15 13:26 | NUR ---
notified pt daughter taya regarding pt status and tranfer to icu.
[2021-02-15] MEDS: LORazepam 2 mg/ml vial IV PRN ×2 (13:45→14:42)
[2021-02-15] MEDS ORDERED: magnesium 4gm in 100ml NS 100 ML IV PRN (13:55)
[2021-02-15] MEDS ORDERED: morphine 4 MG/ML inj SYRINge IV PRN (13:55)
[2021-02-15] MEDS ORDERED: potassium Cl 20 mEq SR tablet PO PRN ×2 (13:55)
[2021-02-15] MEDS: enoxaparin 30mg/0.3ml syringe SUBCUT SCH (13:55)
[2021-02-15] MEDS ORDERED: magnesium Cl slow-release 64mg tablet PO PRN (13:55)
[2021-02-15] MEDS ORDERED: magnesium 2GM in 50ml NS 50 ML IV PRN (13:55)
[2021-02-15] MEDS ORDERED: sodium phosphate inj. 30 MMOL in dextrose 5%-water 250 ML IV PRN (13:55)
[2021-02-15] MEDS ORDERED: sodium phosphate inj. 15 MMOL in dextrose 5%-water 250 ML IV PRN (13:55)
[2021-02-15] MEDS: K, MAG and/or Phos replacement - Verify level? MC SCH (13:55)
[2021-02-15] MEDS ORDERED: Neutra Phos packet PO PRN (13:55)
--- NOTE | 2021-02-15 13:58 | NUR ---
CALLED DR BHATT PT HR WAS IN 160;S WHEN RT WAS HERE TO TAKE PT TO ICU .PT TACHYPNEIC ,TACHYCARDIAC ,OVEREXERTING , PER MD MARVIN GIVE ATIVIAN 2 MG IV Q1 HR FOR ANIXIETY AND AGITATION.
--- NOTE | 2021-02-15 14:00 | NUR ---
PT HR IN 115 SPO2 97 RR 34 BP 224/122.
[2021-02-15] MEDS ORDERED: CefTRIAXone/D5W-Rocephin 1gm 50 ML IV SCH (14:05)
[2021-02-15] MEDS ORDERED: azithromycin 250mg tablet PO ONE (14:05)
--- NOTE | 2021-02-15 14:22 | NUR ---
transportated the pt upsatirs to icu with tool engineer and rt with bipap machine .notified tello cordoba that pt hr was in 160's pt recived 2 mg iv ativian hr 106 in icu ,hydralazine for bp 220/122 .pt bp drop to 192 systolic before transportation to the icu .
--- NOTE | 2021-02-15 14:25 | NUR ---
Report received from Raudel in ED. Patient in room 2045. Upon arrival to ICU patient was tachycardic and hypertensive, despite receiving hydralazine and ativan just before transport from ED. Dr. Betancur quickly decided to intubate patient. Patient was given 40 of etomidate, intubated, and central line was placed. Sarkar catheter placed as well.
[2021-02-15] MEDS ORDERED: hydrALAZINE 20mg/ml inj. IV ONE (14:45)
[2021-02-15] MEDS ORDERED: midazolam 1 mg/ML 2ml injection ONE (15:00)
[2021-02-15] MEDS ORDERED: propofol 1000mg/100ml bottle 100 ML IV ONE (15:12)
[2021-02-15 15:23] LABS: ABG BASE EXCESS -5.1 mmol/L (-2.0-2.0); ABG HCO3 21.6 mmol/L (22.0-26.0); ABG OXYGEN SATURATION 96.7 % (94-97); ABG PCO2 (T) 46.5 mmHg (32.0-45.0); ABG PO2 (T) 93.5 mmHg (75.0-100.0); ALLEN'S TEST POSITIVE; FCOHb 0.3 % (0.0-3.9); FLOW 45 L/min; FMetHb 0.4 % (0.0-1.5); PATIENT TEMPERATURE 37.2; PEEP 5 cm H2O; RESPIRATORY RATE 14 b/min; TIDAL VOLUME 350 mL
[2021-02-15] MEDS: diltiazem-NS 100mg/100ml 100 ML IV SCH (16:00)
[2021-02-15] MEDS ORDERED: midazolam 100mg in NS 100ml 100 ML IV PRN (16:15)
[2021-02-15] MEDS: FENTANYL-0.9 % NACL/PF 100 ML IV PRN (16:47)
[2021-02-15] MEDS ORDERED: midazolam 1 mg/ML 2ml injection IV ONE (17:15)
[2021-02-15] MEDS ORDERED: hydrALAZINE 20mg/ml inj. IV PRN (17:25)
--- NOTE | 2021-02-15 18:32 | NUR ---
Problems reprioritized. Patient report given, questions answered & plan of care reviewed with RENA RN.
--- NOTE | 2021-02-15 18:40 | NUR ---
I have received report and assumed care of pt, pt resting in bed rise and fall of chest cavity equile and symmetrical, pt opens eyes to verbal stimuli,
--- NOTE | 2021-02-15 19:51 | NUR ---
hs cares complete pt tolerated well, minimal sedation in use, see flow sheet for sedation and assessment details.
[2021-02-15] MEDS: quetiapine 100mg tablet NG SCH (20:57)
[2021-02-15] MEDS: lactobacillus rhamnosus 10,000 MMU CELLS/CAPSULE PO SCH (20:57)
[2021-02-15] MEDS ORDERED: temazepam 15mg capsule PO PRN (21:00)
[2021-02-16] VITALS (24 sets, daily range): BP systolic 90–136; BP diastolic 42–74
--- NOTE | 2021-02-16 00:05 | NUR ---
no changes in status noted
[2021-02-16] MEDS ORDERED: propofol 1000mg/100ml bottle 100 ML IV ONE (01:58)
[2021-02-16] MEDS: hydrALAZINE 20mg/ml inj. IV SCH ×2 (02:00→07:37)
[2021-02-16] MEDS: FENTANYL-0.9 % NACL/PF 100 ML IV PRN (02:14)
[2021-02-16] MEDS: ipratropium/albuterol 3ml nebule NEB SCH ×6 (02:50→22:53)
[2021-02-16 03:14] LABS: ABG BASE EXCESS -0.8 mmol/L (-2.0-2.0); ABG HCO3 24.2 mmol/L (22.0-26.0); ABG PCO2 (T) 41.6 mmHg (32.0-45.0); ABG PO2 (T) 91.8 mmHg (75.0-100.0); ALLEN'S TEST Yes; FCOHb 0.3 % (0.0-3.9); FMetHb 0.2 % (0.0-1.5); FO2Hb 96.5 % (94-97); PATIENT TEMPERATURE 37.3; PEEP 5 cm H2O; RESPIRATORY RATE 14 b/min; TIDAL VOLUME 350 mL; TOTAL HEMOGLOBIN 14.9 G/dl (12.0-16.0)
[2021-02-16 03:27] LABS: BASOPHILS % (AUTO) 0.2 % (0-1); EOSINOPHILS % (AUTO) 0.1 % (0-6); HEMATOCRIT 43.4 % (35.0-45.0); HEMOGLOBIN 13.9 g/dl (12.0-16.0); LYMPHOCYTES # (AUTO) 1.6 X10'3 (1.1-4.8); LYMPHOCYTES % (AUTO) 12.1 % (21-51); MEAN CORPUSCULAR HEMOGLOBIN 30.3 PG (27.0-31.0); MEAN CORPUSCULAR VOLUME 94.7 FL (78-98); MEAN PLATELET VOLUME 8.7 FL (7.4-10.4); MONOCYTES % (AUTO) 7.7 % (2-12); NEUTROPHILS # (AUTO) 10.5 X10'3 (1.8-7.7); NEUTROPHILS % (AUTO) 79.9 % (42-75); PLATELET COUNT 237 X10'3 (140-440); RED BLOOD COUNT 4.58 X10'6 (4.20-5.60); RED CELL DISTRIBUTION WIDTH 14.5 % (11.5-14.5); WHITE BLOOD COUNT 13.2 X10'3 (4.5-11.0)
[2021-02-16 03:45] LABS: PARTIAL THROMBOPLASTIN TIME 27 SECONDS (22-32)
[2021-02-16 04:11] LABS: ALANINE AMINOTRANSFERASE 34 U/L (12-78); ALKALINE PHOSPHATASE 89 IU/L (46-116); ANION GAP 6 (8-16); ASPARTATE AMINO TRANSFERASE 18 U/L (10-37); BILIRUBIN,TOTAL 0.3 MG/DL (0.1-1.0); BLOOD UREA NITROGEN 17 MG/DL (7-18); BUN/CREATININE RATIO 18.1 (6.6-38.0); CALCIUM 8.2 MG/DL (8.5-10.1); CHLORIDE 106 MMOL/L (99-107); CHOLESTEROL 236 MG/DL (0-200); CREATININE 0.94 MG/DL (0.40-0.90); GLUCOSE 125 MG/DL (70-104); HDL CHOLESTEROL 79 MG/DL (35-60); LDL CHOLESTEROL 134 MG/DL (50-100); MAGNESIUM 2.6 MG/DL (1.5-2.4); POTASSIUM 4.5 MMOL/L (3.5-5.1); SODIUM 140 MMOL/L (135-145); TOTAL CARBON DIOXIDE 28.1 MMOL/L (24-32); TOTAL PROTEIN 6.1 G/DL (6.4-8.2); TRIGLYCERIDES 170 MG/DL (20-135); eGFR 60 ML/MIN
[2021-02-16] MEDS ORDERED: pantoprazole 40mg Tablet.DR PO SCH (07:30)
[2021-02-16] MEDS: pantoprazole 40mg Tablet.DR PO SCH (07:37)
[2021-02-16] MEDS: CefTRIAXone/D5W-Rocephin 1gm 50 ML IV SCH (07:38)
[2021-02-16] MEDS: methylPREDNISolone sod succ 125mg/2ml vial IV SCH (07:38)
[2021-02-16] MEDS: quetiapine 100mg tablet NG SCH ×2 (07:38→19:09)
[2021-02-16] MEDS: lactobacillus rhamnosus 10,000 MMU CELLS/CAPSULE PO SCH ×2 (07:39→19:09)
[2021-02-16] MEDS: enoxaparin 30mg/0.3ml syringe SUBCUT SCH (07:40)
[2021-02-16] MEDS: K, MAG and/or Phos replacement - Verify level? MC SCH (08:00)
[2021-02-16] MEDS: docusate sod 100mg capsule PO SCH ×2 (08:00→19:09)
[2021-02-16] MEDS: guaiFENesin ER 600mg tablet PO SCH (08:00)
[2021-02-16] MEDS: azithromycin/NS 500mg/250ml 250 ML IV SCH (09:16)
[2021-02-16] MEDS ORDERED: hydrALAZINE 20mg/ml inj. IV PRN (11:36)
[2021-02-16] MEDS: diltiazem-NS 100mg/100ml 100 ML IV SCH (12:00)
[2021-02-16] MEDS: pantoprazole 40 MG vial IV SCH (12:17)
--- NOTE | 2021-02-16 14:27 | NUR ---
Parole Officer, Kaz, called and requested I change her regular diet to NPO.
--- NOTE | 2021-02-16 14:49 | NUR ---
Initial: Pt intubated admit DX COPD exacerbation. MAP 67 this AM during rounds w/ OG in place. TF recs below in case prolonged intubation. Receiving routine colace for bowel care; just admit yesterday. Previously receiving propofol though now stopped per client service administrator at rounds. Will monitor for nutrition support needs on vent. Rec: 1. IF TF; Vital AF at 70ml/hr; to provide 1680ml volume, 2016kcals, 1361ml free water, and 126g protein. 2. IF TF; additional water flush 200ml Q4H 3. IF TF; PALB Q /; daily wts 4. routine bowel care 5. upon extubation; advance diet as medically indicated to heart healthy Addendum: 02/16/21 at [address] Amended: Links added.
--- NOTE | 2021-02-16 17:18 | NUR ---
patient awake but drowsy and following directions
--- NOTE | 2021-02-16 18:22 | NUR ---
Problems reprioritized. Patient report given, questions answered & plan of care reviewed with Kayla TOLEDO. Patient sleeping in bed in no acute distress.
--- NOTE | 2021-02-16 18:24 | NUR ---
Patient in room ICU 2045. I have received report from PARIS Rayo and had the opportunity to ask questions and assume patient care.
[2021-02-16] MEDS: dextrose 5%-1/2 normal saline 1,000 ML IV SCH (19:09)
[2021-02-17] VITALS (24 sets, daily range): BP systolic 106–164; BP diastolic 56–90
[2021-02-17] MEDS: FENTANYL-0.9 % NACL/PF 100 ML IV PRN (00:37)
[2021-02-17 02:55] LABS: BASOPHILS % (AUTO) 0.2 % (0-1); EOSINOPHILS % (AUTO) 0.3 % (0-6); HEMATOCRIT 42.4 % (35.0-45.0); HEMOGLOBIN 13.8 g/dl (12.0-16.0); LYMPHOCYTES # (AUTO) 2.1 X10'3 (1.1-4.8); LYMPHOCYTES % (AUTO) 20.9 % (21-51); MEAN CORPUSCULAR HEMOGLOBIN 30.6 PG (27.0-31.0); MEAN CORPUSCULAR HGB CONC 32.5 g/dL (33.0-36.5); MEAN CORPUSCULAR VOLUME 94.3 FL (78-98); MEAN PLATELET VOLUME 8.1 FL (7.4-10.4); MONOCYTES # (AUTO) 0.7 X10'3 (0-0.9); MONOCYTES % (AUTO) 7.6 % (2-12); PLATELET COUNT 200 X10'3 (140-440); RED CELL DISTRIBUTION WIDTH 14.8 % (11.5-14.5); WHITE BLOOD COUNT 9.9 X10'3 (4.5-11.0)
[2021-02-17] MEDS: ipratropium/albuterol 3ml nebule NEB SCH ×6 (03:00→23:14)
[2021-02-17 03:16] LABS: PARTIAL THROMBOPLASTIN TIME 25 SECONDS (22-32)
[2021-02-17 03:17] LABS: ABG HCO3 28.1 mmol/L (22.0-26.0); ABG OXYGEN SATURATION 94.8 % (94-97); ABG PCO2 (T) 45.7 mmHg (32.0-45.0); ABG PO2 (T) 73.3 mmHg (75.0-100.0); ALLEN'S TEST Yes; FCOHb 0.5 % (0.0-3.9); FMetHb 0.2 % (0.0-1.5); FO2Hb 94.1 % (94-97); PATIENT TEMPERATURE 37.5; PEEP 5 cm H2O; TOTAL HEMOGLOBIN 14.7 G/dl (12.0-16.0)
[2021-02-17 03:21] LABS: ALANINE AMINOTRANSFERASE 66 U/L (12-78); ALBUMIN 2.8 G/DL (3.4-5.0); ALBUMIN/GLOBULIN RATIO 0.9 (1.1-1.5); ALKALINE PHOSPHATASE 92 IU/L (46-116); ANION GAP 5 (8-16); ASPARTATE AMINO TRANSFERASE 34 U/L (10-37); BILIRUBIN,TOTAL 0.3 MG/DL (0.1-1.0); BLOOD UREA NITROGEN 15 MG/DL (7-18); BUN/CREATININE RATIO 17.9 (6.6-38.0); CALCIUM 8.2 MG/DL (8.5-10.1); CHLORIDE 108 MMOL/L (99-107); CREATININE 0.84 MG/DL (0.40-0.90); GLUCOSE 119 MG/DL (70-104); MAGNESIUM 2.4 MG/DL (1.5-2.4); PHOSPHORUS 3.9 MG/DL (2.3-4.5); POTASSIUM 3.9 MMOL/L (3.5-5.1); SODIUM 142 MMOL/L (135-145); TOTAL CARBON DIOXIDE 28.9 MMOL/L (24-32); TOTAL PROTEIN 5.9 G/DL (6.4-8.2); eGFR 68 ML/MIN
[2021-02-17] MEDS: methylPREDNISolone sod succ 125mg/2ml vial IV SCH (07:15)
[2021-02-17] MEDS: lactobacillus rhamnosus 10,000 MMU CELLS/CAPSULE PO SCH (07:15)
[2021-02-17] MEDS: docusate sod 100mg capsule PO SCH (07:15)
[2021-02-17] MEDS: pantoprazole 40 MG vial IV SCH (07:15)
[2021-02-17] MEDS: azithromycin/NS 500mg/250ml 250 ML IV SCH (07:16)
[2021-02-17] MEDS: CefTRIAXone/D5W-Rocephin 1gm 50 ML IV SCH (07:16)
[2021-02-17] MEDS: enoxaparin 40mg/0.4ml syringe SQ SCH (07:16)
[2021-02-17] MEDS: diltiazem-NS 100mg/100ml 100 ML IV SCH (07:17)
[2021-02-17] MEDS: K, MAG and/or Phos replacement - Verify level? MC SCH (07:18)
[2021-02-17] MEDS ORDERED: acetaminophen 325mg tablet OGT PRN (09:28)
[2021-02-17] MEDS ORDERED: acetaminophen 325mg/10.15ml oral unit dose solution OGT PRN ×2 (09:30)
[2021-02-17] MEDS ORDERED: magnesium hydroxide 30ml (MOM) UD suspension OGT PRN (09:35)
[2021-02-17] MEDS ORDERED: mag hydrox/Alum hydrox/simeth 30ml oral suspension OGT PRN (09:35)
[2021-02-17] MEDS ORDERED: Neutra Phos packet OGT PRN (09:36)
[2021-02-17] MEDS ORDERED: ondansetron 4mg rapidly disintigrating tab OGT PRN (09:37)
[2021-02-17] MEDS ORDERED: potassium Cl 20 mEq SR tablet OGT PRN ×2 (09:38)
[2021-02-17] MEDS ORDERED: temazepam 15mg capsule OGT PRN (09:38)
--- NOTE | 2021-02-17 12:06 | NUR ---
F/u 02/17: Pt extubated this AM remains NPO at this time per EMR. Will monitor for PO diet advancement and tolerance. Rec: 1. advance diet as medically indicated to heart healthy 2. monitor for ONS needs pending PO hx once PO 3. routine bowel care 4. weekly wts Addendum: 02/17/21 at [address] Amended: Links added.
[2021-02-17] MEDS: LORazepam 2 mg/ml vial IV PRN ×2 (15:20→18:15)
[2021-02-17] MEDS ORDERED: methylPREDNISolone sod succ 125mg/2ml vial IV STA (16:07)
[2021-02-17] MEDS ORDERED: furosemide 20 MG/2 ML vial IV STA (16:12)
[2021-02-17] MEDS ORDERED: dexamethasone sod phosphate 10mg/ml inj IV ONE (16:14)
[2021-02-17] MEDS ORDERED: racepinephrine 11.25mg/0.5ml nebule IH ONE (16:20)
[2021-02-17] MEDS ORDERED: racepinephrine 11.25mg/0.5ml nebule ONE (16:23)
[2021-02-17] MEDS: guaiFENesin 200 MG/10 ML oral syrup UD cup PO PRN (18:29)
[2021-02-17] MEDS: docusate sodium 100mg/10ml UD cup OGT SCH (20:00)
[2021-02-17] MEDS: lactobacillus rhamnosus 10,000 MMU CELLS/CAPSULE OGT SCH (20:00)
[2021-02-17] MEDS: quetiapine 100mg tablet OGT SCH (20:55)
[2021-02-17] MEDS: diphenhydrAMINE 25 MG/10 ML UD oral solution OGT PRN (21:12)
[2021-02-17] MEDS: HYDROcodone/acetaminophen 10/325mg tab PO PRN (21:13)
[2021-02-17] MEDS ORDERED: MESSAGE TO PHARMACY PO ONE (22:00)
[2021-02-17] MEDS ORDERED: dextrose 50%-water 50ml dispensing syringe IV PRN ×2 (22:00)
[2021-02-17] MEDS ORDERED: insulin Lispro (HumaLOG) vial - multi-dose SQ SCH (22:00)
[2021-02-17] MEDS ORDERED: glucagon, human recombinant 1mg kit SUBCUT PRN (22:00)
[2021-02-17] MEDS ORDERED: dextrose ORAL solution 15 GM/59 ML bottle PO PRN ×2 (22:00)
[2021-02-18] VITALS (23 sets, daily range): BP systolic 105–191; BP diastolic 58–89
[2021-02-18] MEDS: dextrose 5%-1/2 normal saline 1,000 ML IV SCH (03:27)
[2021-02-18 03:28] LABS: BASOPHILS % (AUTO) 0.1 % (0-1); EOSINOPHILS % (AUTO) 0.1 % (0-6); HEMATOCRIT 45.5 % (35.0-45.0); HEMOGLOBIN 15.2 g/dl (12.0-16.0); LYMPHOCYTES # (AUTO) 0.6 X10'3 (1.1-4.8); LYMPHOCYTES % (AUTO) 7.6 % (21-51); MEAN CORPUSCULAR HGB CONC 33.5 g/dL (33.0-36.5); MEAN CORPUSCULAR VOLUME 92.6 FL (78-98); MEAN PLATELET VOLUME 8.1 FL (7.4-10.4); MONOCYTES # (AUTO) 0.4 X10'3 (0-0.9); MONOCYTES % (AUTO) 5.2 % (2-12); PLATELET COUNT 215 X10'3 (140-440); RED BLOOD COUNT 4.92 X10'6 (4.20-5.60); RED CELL DISTRIBUTION WIDTH 14.3 % (11.5-14.5); WHITE BLOOD COUNT 8.1 X10'3 (4.5-11.0)
[2021-02-18 03:35] LABS: PARTIAL THROMBOPLASTIN TIME 25 SECONDS (22-32)
[2021-02-18 03:37] LABS: CHLORIDE 108 MMOL/L (99-107); GLUCOSE 162 MG/DL (70-104); POTASSIUM 4.2 MMOL/L (3.5-5.1); SODIUM 146 MMOL/L (135-145); TOTAL CARBON DIOXIDE 30.4 MMOL/L (24-32)
[2021-02-18 03:38] LABS: ALANINE AMINOTRANSFERASE 137 U/L (12-78); ALBUMIN 3.2 G/DL (3.4-5.0); ALBUMIN/GLOBULIN RATIO 0.9 (1.1-1.5); ALKALINE PHOSPHATASE 120 IU/L (46-116); ANION GAP 8 (8-16); ASPARTATE AMINO TRANSFERASE 70 U/L (10-37); BILIRUBIN,TOTAL 0.5 MG/DL (0.1-1.0); BLOOD UREA NITROGEN 21 MG/DL (7-18); BUN/CREATININE RATIO 20.2 (6.6-38.0); CALCIUM 8.5 MG/DL (8.5-10.1); CREATININE 1.04 MG/DL (0.40-0.90); MAGNESIUM 2.6 MG/DL (1.5-2.4); PHOSPHORUS 4.8 MG/DL (2.3-4.5); TOTAL PROTEIN 6.9 G/DL (6.4-8.2); eGFR 53 ML/MIN
[2021-02-18] MEDS: ipratropium/albuterol 3ml nebule NEB SCH ×6 (03:45→23:09)
[2021-02-18] MEDS: CefTRIAXone/D5W-Rocephin 1gm 50 ML IV SCH (07:00)
[2021-02-18] MEDS: azithromycin/NS 500mg/250ml 250 ML IV SCH (07:00)
[2021-02-18] MEDS: quetiapine 100mg tablet OGT SCH ×2 (07:00→19:41)
[2021-02-18] MEDS: pantoprazole 40mg Tablet.DR PO SCH (07:00)
[2021-02-18] MEDS: K, MAG and/or Phos replacement - Verify level? MC SCH (07:59)
[2021-02-18] MEDS: enoxaparin 40mg/0.4ml syringe SQ SCH (07:59)
[2021-02-18] MEDS: methylPREDNISolone sod succ 125mg/2ml vial IV SCH (08:02)
[2021-02-18] MEDS: lactobacillus rhamnosus 10,000 MMU CELLS/CAPSULE OGT SCH ×2 (08:02→19:41)
[2021-02-18] MEDS: LORazepam 2 mg/ml vial IV PRN ×3 (08:06→22:21)
[2021-02-18] MEDS: docusate sodium 100mg/10ml UD cup OGT SCH ×2 (08:14→21:00)
[2021-02-18] MEDS: dextrose 5%-water 1,000 ML IV SCH (11:29)
--- NOTE | 2021-02-18 20:10 | NUR ---
RN Note -Pt off BiPAP for meal. Tolerated well.
[2021-02-18] MEDS: insulin glargine (Lantus) pen - multi-dose SQ SCH (21:00)
[2021-02-18] MEDS: guaiFENesin 200 MG/10 ML oral syrup UD cup PO PRN (21:00)
[2021-02-18] MEDS: diphenhydrAMINE 25 MG/10 ML UD oral solution OGT PRN (21:00)
[2021-02-18] MEDS: HYDROcodone/acetaminophen 10/325mg tab PO PRN (21:05)
--- NOTE | 2021-02-18 22:20 | NUR ---
RN Note -MD Communication Called Dr. Puga regarding pt remains extremely anxious after meds and measures to calm pt. Pt is tachypneic, tachycardic, and hypertensive. Orders received.
[2021-02-18] MEDS ORDERED: Melatonin 3mg tablet PO ONE (22:40)
[2021-02-18] MEDS ORDERED: haloperidol lactate 5mg/ml inj IM ONE (22:40)
[2021-02-18] MEDS ORDERED: racepinephrine 11.25mg/0.5ml nebule IH ONE (23:20)
[2021-02-19] VITALS (24 sets, daily range): BP systolic 105–189; BP diastolic 61–100
[2021-02-19] MEDS: ipratropium/albuterol 3ml nebule NEB SCH ×6 (03:42→23:15)
[2021-02-19 03:46] LABS: BASOPHILS % (AUTO) 0.2 % (0-1); EOSINOPHILS % (AUTO) 0.4 % (0-6); HEMATOCRIT 44.7 % (35.0-45.0); HEMOGLOBIN 14.2 g/dl (12.0-16.0); LYMPHOCYTES % (AUTO) 17.4 % (21-51); MEAN CORPUSCULAR HEMOGLOBIN 30.3 PG (27.0-31.0); MEAN CORPUSCULAR HGB CONC 31.8 g/dL (33.0-36.5); MEAN CORPUSCULAR VOLUME 95.2 FL (78-98); MEAN PLATELET VOLUME 8.1 FL (7.4-10.4); MONOCYTES % (AUTO) 8.3 % (2-12); NEUTROPHILS # (AUTO) 8.5 X10'3 (1.8-7.7); NEUTROPHILS % (AUTO) 73.7 % (42-75); PLATELET COUNT 200 X10'3 (140-440); RED BLOOD COUNT 4.69 X10'6 (4.20-5.60); RED CELL DISTRIBUTION WIDTH 14.4 % (11.5-14.5); WHITE BLOOD COUNT 11.6 X10'3 (4.5-11.0)
[2021-02-19 03:57] LABS: PARTIAL THROMBOPLASTIN TIME 25 SECONDS (22-32)
[2021-02-19 04:01] LABS: ALANINE AMINOTRANSFERASE 272 U/L (12-78); ALBUMIN 2.9 G/DL (3.4-5.0); ALBUMIN/GLOBULIN RATIO 0.9 (1.1-1.5); ALKALINE PHOSPHATASE 121 IU/L (46-116); ANION GAP 6 (8-16); ASPARTATE AMINO TRANSFERASE 97 U/L (10-37); BILIRUBIN,TOTAL 0.4 MG/DL (0.1-1.0); BLOOD UREA NITROGEN 26 MG/DL (7-18); BUN/CREATININE RATIO 26.8 (6.6-38.0); CALCIUM 8.4 MG/DL (8.5-10.1); CHLORIDE 109 MMOL/L (99-107); CREATININE 0.97 MG/DL (0.40-0.90); GLUCOSE 119 MG/DL (70-104); MAGNESIUM 2.5 MG/DL (1.5-2.4); PHOSPHORUS 4.6 MG/DL (2.3-4.5); POTASSIUM 3.9 MMOL/L (3.5-5.1); SODIUM 146 MMOL/L (135-145); TOTAL CARBON DIOXIDE 30.8 MMOL/L (24-32); TOTAL PROTEIN 6.2 G/DL (6.4-8.2); eGFR 57 ML/MIN
[2021-02-19] MEDS: dextrose 5%-water 1,000 ML IV SCH (07:29)
[2021-02-19] MEDS: K, MAG and/or Phos replacement - Verify level? MC SCH (08:00)
[2021-02-19] MEDS: azithromycin/NS 500mg/250ml 250 ML IV SCH (08:01)
[2021-02-19] MEDS: CefTRIAXone/D5W-Rocephin 1gm 50 ML IV SCH (08:02)
[2021-02-19] MEDS: methylPREDNISolone sod succ 125mg/2ml vial IV SCH (08:02)
[2021-02-19] MEDS: lactobacillus rhamnosus 10,000 MMU CELLS/CAPSULE OGT SCH ×2 (08:02→19:34)
[2021-02-19] MEDS: LORazepam 2 mg/ml vial IV PRN ×3 (08:03→17:41)
[2021-02-19] MEDS: quetiapine 100mg tablet OGT SCH ×2 (08:03→19:34)
[2021-02-19] MEDS: docusate sodium 100mg/10ml UD cup OGT SCH ×2 (08:03→19:34)
[2021-02-19] MEDS: pantoprazole 40mg Tablet.DR PO SCH (08:03)
[2021-02-19] MEDS: enoxaparin 40mg/0.4ml syringe SQ SCH (08:04)
--- NOTE | 2021-02-19 11:14 | NUR ---
F/u 02/19: Pt advanced to regular diet last night PO 100% first meal however currently lower saturations and significant fatigue following PM haldol w/ pt to remain NPO at this time until respiratory status improves per cbx operator at rounds. Pt is receiving D5 at 50ml/hr providing 204 kcals/day. No BM this admit 4 days receiving routine colace. Day 4 no significant nutrition this admit. IF pt to remain NPO may benefit from corpak to meet nutrition needs. Will monitor for PO diet advancement and tolerance given recent meal intake prior to desaturation episode. Rec: 1. advance diet as medically indicated to regular 2. monitor for ONS needs pending PO hx once PO 3. IF pt remains NPO greater than 5 days r/t respiratory status; consider NG feeds to meet nutrition needs 4. routine bowel care; 4 days constipation 5. weekly wts Addendum: 02/19/21 at [address] Amended: Links added.
[2021-02-19] MEDS: fentaNYL 12 MCG/hour patch.TD72 TD SCH (13:23)
--- NOTE | 2021-02-19 14:10 | NUR ---
Spoke with pt concerning her care. pt states she wants to eat and drink. she doesn't understand why she ate last night but not today. I attempted to explain the reason behind her npo status. pt states , "I want to leave so I can eat". pt on bipap at 40% with a rate of 12 and settings of 12/5. pt drifts back to sleep with minimal stimulation
[2021-02-19] MEDS ORDERED: albuterol 2.5 MG/3 ML nebule NEB PRN (17:50)
[2021-02-19] MEDS: insulin glargine (Lantus) pen - multi-dose SQ SCH (20:22)
[2021-02-19] MEDS ORDERED: Melatonin 3mg tablet PO SCH (21:00)
[2021-02-20] VITALS (24 sets, daily range): BP systolic 125–158; BP diastolic 59–94
[2021-02-20 02:10] LABS: BASOPHILS % (AUTO) 0.3 % (0-1); EOSINOPHILS # (AUTO) 0.1 X10'3 (0-0.9); EOSINOPHILS % (AUTO) 0.9 % (0-6); HEMATOCRIT 44.9 % (35.0-45.0); HEMOGLOBIN 14.6 g/dl (12.0-16.0); LYMPHOCYTES # (AUTO) 1.7 X10'3 (1.1-4.8); LYMPHOCYTES % (AUTO) 22.9 % (21-51); MEAN CORPUSCULAR HEMOGLOBIN 30.8 PG (27.0-31.0); MEAN CORPUSCULAR HGB CONC 32.5 g/dL (33.0-36.5); MEAN CORPUSCULAR VOLUME 94.9 FL (78-98); MEAN PLATELET VOLUME 7.8 FL (7.4-10.4); MONOCYTES # (AUTO) 0.7 X10'3 (0-0.9); MONOCYTES % (AUTO) 8.8 % (2-12); NEUTROPHILS # (AUTO) 5.1 X10'3 (1.8-7.7); NEUTROPHILS % (AUTO) 67.1 % (42-75); PLATELET COUNT 190 X10'3 (140-440); RED BLOOD COUNT 4.73 X10'6 (4.20-5.60); RED CELL DISTRIBUTION WIDTH 13.8 % (11.5-14.5); WHITE BLOOD COUNT 7.6 X10'3 (4.5-11.0)
[2021-02-20 02:21] LABS: PARTIAL THROMBOPLASTIN TIME 26 SECONDS (22-32)
[2021-02-20 02:27] LABS: ALANINE AMINOTRANSFERASE 185 U/L (12-78); ALBUMIN 2.8 G/DL (3.4-5.0); ALBUMIN/GLOBULIN RATIO 0.8 (1.1-1.5); ALKALINE PHOSPHATASE 110 IU/L (46-116); ANION GAP 6 (8-16); ASPARTATE AMINO TRANSFERASE 27 U/L (10-37); BILIRUBIN,TOTAL 0.3 MG/DL (0.1-1.0); BLOOD UREA NITROGEN 18 MG/DL (7-18); BUN/CREATININE RATIO 22.5 (6.6-38.0); CALCIUM 8.3 MG/DL (8.5-10.1); CHLORIDE 110 MMOL/L (99-107); GLUCOSE 122 MG/DL (70-104); MAGNESIUM 2.4 MG/DL (1.5-2.4); PHOSPHORUS 3.3 MG/DL (2.3-4.5); POTASSIUM 3.9 MMOL/L (3.5-5.1); SODIUM 146 MMOL/L (135-145); TOTAL CARBON DIOXIDE 29.8 MMOL/L (24-32); TOTAL PROTEIN 6.2 G/DL (6.4-8.2); eGFR 72 ML/MIN
[2021-02-20] MEDS: ipratropium/albuterol 3ml nebule NEB SCH ×6 (02:48→23:17)
[2021-02-20] MEDS: dextrose 5%-water 1,000 ML IV SCH ×2 (03:29→13:09)
--- NOTE | 2021-02-20 06:20 | NUR ---
Problems reprioritized. Patient report given, questions answered & plan of care reviewed with Bailee RN at bedside.
--- NOTE | 2021-02-20 06:20 | NUR ---
Patient in room ICU 2045. I have received report from PARIS Mendoza and had the opportunity to ask questions and assume patient care.
[2021-02-20] MEDS: methylPREDNISolone sod succ 125mg/2ml vial IV SCH (07:49)
[2021-02-20] MEDS: azithromycin/NS 500mg/250ml 250 ML IV SCH (07:49)
[2021-02-20] MEDS: pantoprazole 40mg Tablet.DR PO SCH (07:50)
[2021-02-20] MEDS: HYDROcodone/acetaminophen 10/325mg tab PO PRN (07:50)
[2021-02-20] MEDS: lactobacillus rhamnosus 10,000 MMU CELLS/CAPSULE OGT SCH ×2 (07:51→19:33)
[2021-02-20] MEDS: quetiapine 100mg tablet OGT SCH ×2 (07:51→19:33)
[2021-02-20] MEDS: docusate sodium 100mg/10ml UD cup OGT SCH ×2 (07:51→19:33)
[2021-02-20] MEDS: enoxaparin 40mg/0.4ml syringe SQ SCH (07:52)
[2021-02-20] MEDS: CefTRIAXone/D5W-Rocephin 1gm 50 ML IV SCH (07:52)
[2021-02-20] MEDS: K, MAG and/or Phos replacement - Verify level? MC SCH (08:00)
[2021-02-20] MEDS: lactose-reduced food (Ensure Enlive) - 237ml bottle PO SCH ×2 (13:05→18:33)
--- NOTE | 2021-02-20 18:13 | NUR ---
Problems reprioritized. Patient report given, questions answered & plan of care reviewed with PARIS Mendoza.
--- NOTE | 2021-02-20 18:15 | NUR ---
Patient in room ICU 2045. I have received report from Bailee TOLEDO at bedside and had the opportunity to ask questions and assume patient care.
[2021-02-20] MEDS: insulin glargine (Lantus) pen - multi-dose SQ SCH (18:27)
[2021-02-20] MEDS: polyethylene glycol 3350 17gm powd pack PO SCH (20:08)
[2021-02-21] VITALS (20 sets, daily range): BP systolic 118–165; BP diastolic 55–93
[2021-02-21 03:18] LABS: PARTIAL THROMBOPLASTIN TIME 27 SECONDS (22-32)
[2021-02-21] MEDS: ipratropium/albuterol 3ml nebule NEB SCH ×6 (03:18→22:53)
[2021-02-21 03:23] LABS: PHOSPHORUS 3.8 MG/DL (2.3-4.5)
[2021-02-21] MEDS: dextrose 5%-water 1,000 ML IV SCH (05:52)
--- NOTE | 2021-02-21 06:18 | NUR ---
Patient in room ICU 2045. I have received report from PARIS eMndoza and had the opportunity to ask questions and assume patient care.
--- NOTE | 2021-02-21 06:21 | NUR ---
Problems reprioritized. Patient report given, questions answered & plan of care reviewed with Bailee RN at bedside.
[2021-02-21 06:46] LABS: ALANINE AMINOTRANSFERASE 152 U/L (12-78); ALBUMIN 2.7 G/DL (3.4-5.0); ALBUMIN/GLOBULIN RATIO 0.8 (1.1-1.5); ALKALINE PHOSPHATASE 113 IU/L (46-116); ANION GAP 11 (8-16); ASPARTATE AMINO TRANSFERASE 36 U/L (10-37); BILIRUBIN,TOTAL 0.2 MG/DL (0.1-1.0); BLOOD UREA NITROGEN 20 MG/DL (7-18); BUN/CREATININE RATIO 20.6 (6.6-38.0); CALCIUM 8.3 MG/DL (8.5-10.1); CHLORIDE 106 MMOL/L (99-107); CREATININE 0.97 MG/DL (0.40-0.90); GLUCOSE 139 MG/DL (70-104); POTASSIUM 3.5 MMOL/L (3.5-5.1); SODIUM 144 MMOL/L (135-145); TOTAL CARBON DIOXIDE 27.3 MMOL/L (24-32); TOTAL PROTEIN 5.9 G/DL (6.4-8.2); eGFR 57 ML/MIN
[2021-02-21 07:16] LABS: BASOPHILS % (AUTO) 0.5 % (0-1); EOSINOPHILS # (AUTO) 0.2 X10'3 (0-0.9); HEMOGLOBIN 14.2 g/dl (12.0-16.0); LYMPHOCYTES # (AUTO) 2.5 X10'3 (1.1-4.8); LYMPHOCYTES % (AUTO) 29.6 % (21-51); MEAN CORPUSCULAR HGB CONC 33.1 g/dL (33.0-36.5); MEAN CORPUSCULAR VOLUME 93.6 FL (78-98); MEAN PLATELET VOLUME 7.9 FL (7.4-10.4); MONOCYTES # (AUTO) 0.7 X10'3 (0-0.9); MONOCYTES % (AUTO) 8.7 % (2-12); NEUTROPHILS # (AUTO) 4.8 X10'3 (1.8-7.7); NEUTROPHILS % (AUTO) 58.2 % (42-75); PLATELET COUNT 178 X10'3 (140-440); RED BLOOD COUNT 4.59 X10'6 (4.20-5.60); RED CELL DISTRIBUTION WIDTH 13.5 % (11.5-14.5); WHITE BLOOD COUNT 8.3 X10'3 (4.5-11.0)
[2021-02-21] MEDS: K, MAG and/or Phos replacement - Verify level? MC SCH (08:00)
[2021-02-21] MEDS: docusate sodium 100mg/10ml UD cup OGT SCH ×3 (08:00→20:43)
[2021-02-21] MEDS: enoxaparin 40mg/0.4ml syringe SQ SCH (08:07)
[2021-02-21] MEDS: lactobacillus rhamnosus 10,000 MMU CELLS/CAPSULE OGT SCH ×2 (08:08→20:42)
[2021-02-21] MEDS: CefTRIAXone/D5W-Rocephin 1gm 50 ML IV SCH (08:08)
[2021-02-21] MEDS: fentaNYL 12 MCG/hour patch.TD72 TD SCH (08:08)
[2021-02-21] MEDS: azithromycin/NS 500mg/250ml 250 ML IV SCH (08:08)
[2021-02-21] MEDS: quetiapine 100mg tablet OGT SCH ×2 (08:08→20:43)
[2021-02-21] MEDS: pantoprazole 40mg Tablet.DR PO SCH (08:09)
[2021-02-21] MEDS: methylPREDNISolone sod succ 125mg/2ml vial IV SCH (08:09)
[2021-02-21] MEDS: lactose-reduced food (Ensure Enlive) - 237ml bottle PO SCH ×3 (08:25→20:51)
--- NOTE | 2021-02-21 09:16 | NUR ---
Reassessment: Patient's diet was advanced to regular and pt documented with 100% PO intake of meals. Noted pt receiving Ensure Enlive TID with average 75% PO intake of ONS. Pt meeting estimated nutrient needs. Recommend discontinuing ONS and adding double protein TID to meals for satiety given good acceptance of meals. LBM 8, first documented BM since admit, moderate in size per EMR. Pt receiving routine bowel care. No nutrition intervention implemented at this time. Will continue to follow. Rec: 1. Continue regular diet 2. Ensure Enlive TID; consider discontinuing ONS and adding double protein TID to meal trays for satiety given good acceptance of meals 3. Routine bowel care 4. Scaled weights per rx Addendum: 02/21/21 at [address] Amended: Links added.
--- NOTE | 2021-02-21 16:36 | NUR ---
Problems reprioritized. Patient report given, questions answered & plan of care reviewed with PARIS Mary.
--- NOTE | 2021-02-21 17:00 | NUR ---
Pt. arrived on unit via w/c accompanied by primary RN. Pt. made comfortable, oriented to room and given call light.
--- NOTE | 2021-02-21 17:50 | NUR ---
Removed f/c per protocol. Pt. provided a bedside commode. Able to transfer easily. Voided about 15 ml after catheter removed. Assisted back to bed. Will notify oncoming primary RN to monitor for retention.
--- NOTE | 2021-02-21 18:33 | NUR ---
Gave report to Suzanne Palacios RN.
--- NOTE | 2021-02-21 18:35 | NUR ---
Patient in room EARL 349. I have received report from MELO TOLEDO and had the opportunity to ask questions and assume patient care.
[2021-02-21] MEDS: guaiFENesin 200 MG/10 ML oral syrup UD cup PO PRN (20:44)
[2021-02-21] MEDS: polyethylene glycol 3350 17gm powd pack PO SCH (20:48)
[2021-02-21] MEDS: HYDROcodone/acetaminophen 10/325mg tab PO PRN (20:49)
[2021-02-21] MEDS: insulin glargine (Lantus) pen - multi-dose SQ SCH (20:53)
[2021-02-22] VITALS: BP 97/61
[2021-02-22] MEDS: dextrose 5%-water 1,000 ML IV SCH (02:18)
[2021-02-22] MEDS: guaiFENesin 200 MG/10 ML oral syrup UD cup PO PRN (03:09)
[2021-02-22] MEDS: ipratropium/albuterol 3ml nebule NEB SCH ×6 (03:13→23:34)
--- NOTE | 2021-02-22 06:30 | NUR ---
Problems reprioritized. Patient report given, questions answered & plan of care reviewed with TON TOLEDO.
[2021-02-22 06:33] LABS: PARTIAL THROMBOPLASTIN TIME 25 SECONDS (22-32)
--- NOTE | 2021-02-22 06:57 | NUR ---
Patient in room EARL 349. I have received report from rossy cordoba and had the opportunity to ask questions and assume patient care.
[2021-02-22 07:18] LABS: PHOSPHORUS 3.7 MG/DL (2.3-4.5)
[2021-02-22 08:00] VITALS: BP 155/87
[2021-02-22] MEDS: K, MAG and/or Phos replacement - Verify level? MC SCH (08:00)
[2021-02-22] MEDS: CefTRIAXone/D5W-Rocephin 1gm 50 ML IV SCH (08:52)
[2021-02-22] MEDS: enoxaparin 40mg/0.4ml syringe SQ SCH (08:52)
[2021-02-22] MEDS: methylPREDNISolone sod succ 125mg/2ml vial IV SCH (08:59)
[2021-02-22] MEDS: quetiapine 100mg tablet OGT SCH ×2 (08:59→20:08)
[2021-02-22] MEDS: docusate sodium 100mg/10ml UD cup OGT SCH ×2 (08:59→20:08)
[2021-02-22] MEDS: lactobacillus rhamnosus 10,000 MMU CELLS/CAPSULE OGT SCH ×2 (08:59→20:08)
[2021-02-22] MEDS: pantoprazole 40mg Tablet.DR PO SCH (09:06)
[2021-02-22] MEDS: lactose-reduced food (Ensure Enlive) - 237ml bottle PO SCH ×3 (09:08→17:59)
[2021-02-22] MEDS: azithromycin/NS 500mg/250ml 250 ML IV SCH (10:10)
[2021-02-22 11:00] VITALS: BP 101/41
[2021-02-22] MEDS ORDERED: benzonatate 100mg capsule PO PRN (11:30)
[2021-02-22] MEDS: fentaNYL 12 MCG/hour patch.TD72 TD SCH (17:59)
--- NOTE | 2021-02-22 18:45 | NUR ---
Patient in room EARL 349. I have received report from PARIS Rodríguez and had the opportunity to ask questions and assume patient care.
[2021-02-22 19:00] VITALS: BP 136/70
--- NOTE | 2021-02-22 19:26 | NUR ---
patient up and about seen by RT oxygen decreased to 2L o2 sats 95%/ IJ DC"D . new fentanyl patch applied to left upper arm. VSS. Report given to Paloma TOLEDO
[2021-02-22] MEDS: polyethylene glycol 3350 17gm powd pack PO SCH (20:08)
[2021-02-22] MEDS: insulin glargine (Lantus) pen - multi-dose SQ SCH (20:17)
[2021-02-23] VITALS: BP 148/80
[2021-02-23] MEDS: ipratropium/albuterol 3ml nebule NEB SCH ×6 (03:14→23:13)
[2021-02-23 06:05] LABS: PARTIAL THROMBOPLASTIN TIME 25 SECONDS (22-32)
--- NOTE | 2021-02-23 06:18 | NUR ---
Problems reprioritized. Patient report given, questions answered & plan of care reviewed with PARIS Blank.
[2021-02-23 06:23] LABS: MAGNESIUM 2.2 MG/DL (1.5-2.4); PHOSPHORUS 4.7 MG/DL (2.3-4.5)
[2021-02-23 07:20] VITALS: BP 150/79
[2021-02-23] MEDS: docusate sodium 100mg/10ml UD cup OGT SCH ×2 (07:49→19:06)
[2021-02-23] MEDS: predniSONE 20 mg tablet PO SCH (07:49)
[2021-02-23] MEDS: pantoprazole 40mg Tablet.DR PO SCH (07:49)
[2021-02-23] MEDS: quetiapine 100mg tablet OGT SCH ×2 (07:49→19:05)
[2021-02-23] MEDS: lactobacillus rhamnosus 10,000 MMU CELLS/CAPSULE OGT SCH ×2 (07:49→19:05)
[2021-02-23] MEDS: enoxaparin 40mg/0.4ml syringe SQ SCH (07:50)
[2021-02-23] MEDS: K, MAG and/or Phos replacement - Verify level? MC SCH (07:50)
[2021-02-23] MEDS: CefTRIAXone/D5W-Rocephin 1gm 50 ML IV SCH (07:50)
[2021-02-23] MEDS: lactose-reduced food (Ensure Enlive) - 237ml bottle PO SCH ×3 (07:58→18:08)
[2021-02-23] MEDS ORDERED: azithromycin 250mg tablet PO SCH (08:00)
--- NOTE | 2021-02-23 12:06 | NUR ---
O2 Sat at rest on room air:90% If below 89%: Recovery O2 Sat at rest on ___LPM:___%:___% via (mask/nasal cannula, etc..) No further documentation is necessary. If O2 Sat did not drop below 89% on room air,ambulate patient on room air. O2 Sat while ambulating on room air:85% Recovery O2 Sat while ambulating on 2 LPM:91% No further documentation is necessary. If patient does not drop below 89% while ambulating, he/she does not qualify for home O2.
[2021-02-23 12:09] VITALS: BP 138/61
[2021-02-23 18:00] VITALS: BP 138/80
--- NOTE | 2021-02-23 18:09 | NUR ---
Patient in room EARL 349. I have received report from PARIS Blank and had the opportunity to ask questions and assume patient care.
--- NOTE | 2021-02-23 18:14 | NUR ---
Problems reprioritized. Patient report given, questions answered & plan of care reviewed with Paloma Jensen RN.
[2021-02-23] MEDS: HYDROcodone/acetaminophen 10/325mg tab PO PRN (19:05)
[2021-02-23] MEDS: polyethylene glycol 3350 17gm powd pack PO SCH (20:50)
[2021-02-23] MEDS: insulin glargine (Lantus) pen - multi-dose SQ SCH (21:00)
[2021-02-24] VITALS: BP 122/77
[2021-02-24] MEDS: ipratropium/albuterol 3ml nebule NEB SCH ×4 (03:22→16:05)
--- NOTE | 2021-02-24 06:27 | NUR ---
Problems reprioritized. Patient report given, questions answered & plan of care reviewed with PARIS Ludwig.
--- NOTE | 2021-02-24 06:45 | NUR ---
Patient in room EARL 349B. I have received report from PARIS ERWIN and had the opportunity to ask questions and assume patient care.
[2021-02-24 07:00] VITALS: BP 137/76
[2021-02-24 07:28] LABS: PARTIAL THROMBOPLASTIN TIME 25 SECONDS (22-32)
[2021-02-24 07:32] LABS: MAGNESIUM 2.2 MG/DL (1.5-2.4)
[2021-02-24] MEDS: lactose-reduced food (Ensure Enlive) - 237ml bottle PO SCH ×2 (08:00→12:59)
[2021-02-24] MEDS: K, MAG and/or Phos replacement - Verify level? MC SCH (08:00)
[2021-02-24] MEDS: fentaNYL 12 MCG/hour patch.TD72 TD SCH (08:00)
[2021-02-24] MEDS: enoxaparin 40mg/0.4ml syringe SQ SCH (09:53)
[2021-02-24] MEDS: lactobacillus rhamnosus 10,000 MMU CELLS/CAPSULE OGT SCH (09:53)
[2021-02-24] MEDS: docusate sodium 100mg/10ml UD cup OGT SCH (09:53)
[2021-02-24] MEDS: quetiapine 100mg tablet OGT SCH (09:55)
[2021-02-24] MEDS: HYDROcodone/acetaminophen 10/325mg tab PO PRN (09:55)
[2021-02-24] MEDS: pantoprazole 40mg Tablet.DR PO SCH (09:56)
[2021-02-24] MEDS: predniSONE 20 mg tablet PO SCH (09:56)
[2021-02-24] MEDS: CefTRIAXone/D5W-Rocephin 1gm 50 ML IV SCH (10:07)
[2021-02-24 11:00] VITALS: BP 119/52
[2021-02-24] MEDS ORDERED: BENZ-16 PO (11:47)
[2021-02-24] MEDS ORDERED: ALB0.5UD IH (11:47)
[2021-02-24] MEDS ORDERED: PRED10TA23 PO (11:47)
--- NOTE | 2021-02-24 16:50 | NUR ---
PATIENT STABLE AND APPROPRIATE FOR DISCHARGE, HOME OXYGEN DELIVERED, IV TAKEN OUT, EDUCATION GIVEN, NEW MEDS E-SCRIPTED TO PREFERRED PHARMACY, ALL BELONGINGS SENT WITH PATIENT, PATIENT TAKEN TO LOBBY BY WHEELCHAIR TO AN AWAITING CAR WHERE FAMILY MEMBER WILL TAKE PATIENT HOME
== END 2021-02-24 16:52 | disposition home health service (06) | DRG 208 ==
LOC: ER 01:40 → ED HOLD 03:57 → UNDOADMIN 03:57 → ED HOLD 04:05 → ICU 2S 14:17 → ED HOLD 14:17 → SUR 3N 02-21 17:11
PROVIDERS: ADMIT Family Medicine; ATTEND Family Medicine
PROC: 5A1945Z Respiratory Ventilation, 24-96 Consecutive Hours (ICD-10-PCS; principal; 2021-02-15)
PROC: 0BH17EZ Insertion of Endotracheal Airway into Trachea, Via Natural or Artificial Opening (ICD-10-PCS; 2021-02-15)
PROC: 5A09357 Assistance with Respiratory Ventilation, Less than 24 Consecutive Hours, Continuous Positive Airway Pressure (ICD-10-PCS; 2021-02-15)
PROC: 5A09457 Assistance with Respiratory Ventilation, 24-96 Consecutive Hours, Continuous Positive Airway Pressure (ICD-10-PCS; 2021-02-17)
DX: J96.22 Acute and chronic respiratory failure with hypercapnia (principal); E87.2 Acidosis; F11.20 Opioid dependence, uncomplicated; J44.0 Chronic obstructive pulmonary disease with (acute) lower respiratory infection; J44.1 Chronic obstructive pulmonary disease with (acute) exacerbation; N17.9 Acute kidney failure, unspecified; Z20.822 Contact with and (suspected) exposure to COVID-19; J20.9 Acute bronchitis, unspecified; F41.1 Generalized anxiety disorder; G89.4 Chronic pain syndrome; I10 Essential (primary) hypertension; J38.5 Laryngeal spasm; N95.1 Menopausal and female climacteric states; Z87.891 Personal history of nicotine dependence; Z99.81 Dependence on supplemental oxygen; Z79.899 Other long term (current) drug therapy
CPT/HCPCS: 36415; 36600; 71045; 80053; 80061; 80305; 81001; 82550; 82803; 82948; 83036; 83605; 83690; 83735; 83880; 84100; 84145; 84439; 84443; 84484; 85018; 85025; 85379; 85610; 85730; 87070; 87081; 87635; 93005; 94002; 94003; 94640; 94660; 94760; 94799; 96375; 97110; 97116; 97161; 97530; 99291; A7015; C9113; C9803; G0378; J0360; J0456; J0696; J1100; J1200; J1630; J1644; J1650; J1815; J1940; J2060; J2250; J2704; J2930; J3010; J3475; J7070; J7512; Q0163

== ENCOUNTER 2021-11-06 14:09 | Observation (INO) | payer BC ==
[~2021-11-06] VITALS: Ht 172.7 cm; Wt 69.1 kg
[~2021-11-06 14:09] MED LIST changes: -CLON0.1T2 PO; -OXYC1TAB17 PO; -PRED1TAB PO; -guaiFENesin/codeine oral syrup PO
[2021-11-06] MEDS ORDERED: methylPREDNISolone sod succ 125mg/2ml vial IV ONE (14:35)
[2021-11-06] MEDS ORDERED: magnesium 2GM in 50ml NS 50 ML IV ONE (14:35)
[2021-11-06] MEDS ORDERED: ipratropium 0.5 MG/2.5ML nebule IH ONE (14:35)
[2021-11-06] MEDS ORDERED: normal saline 1000ML IV soln IVB ONE (14:35)
[2021-11-06 14:40] LABS: BASOPHILS % (AUTO) 0.4 % (0-1); EOSINOPHILS # (AUTO) 0.4 X10'3 (0-0.9); EOSINOPHILS % (AUTO) 3.9 % (0-6); HEMATOCRIT 50.9 % (35.0-45.0); HEMOGLOBIN 16.5 g/dl (12.0-16.0); LYMPHOCYTES # (AUTO) 1.1 X10'3 (1.1-4.8); LYMPHOCYTES % (AUTO) 9.3 % (21-51); MEAN CORPUSCULAR HEMOGLOBIN 30.1 PG (27.0-31.0); MEAN CORPUSCULAR HGB CONC 32.5 g/dL (33.0-36.5); MEAN CORPUSCULAR VOLUME 92.5 FL (78-98); MEAN PLATELET VOLUME 7.7 FL (7.4-10.4); MONOCYTES # (AUTO) 0.4 X10'3 (0-0.9); MONOCYTES % (AUTO) 3.6 % (2-12); NEUTROPHILS # (AUTO) 9.4 X10'3 (1.8-7.7); NEUTROPHILS % (AUTO) 82.8 % (42-75); PLATELET COUNT 240 X10'3 (140-440); RED CELL DISTRIBUTION WIDTH 14.3 % (11.5-14.5); WHITE BLOOD COUNT 11.3 X10'3 (4.5-11.0)
[2021-11-06] MEDS ORDERED: CefTRIAXone 2gm/D5W 50ml BAG 50 ML IV ONE (14:40)
[2021-11-06] MEDS ORDERED: CefTRIAXone 2gm/NS 100ml IVPB 100 ML IV ONE (14:45)
[2021-11-06] MEDS: albuterol 2.5 MG/3 ML nebule CONTNEB PRN ×2 (14:59→16:42)
[2021-11-06 15:06] LABS: ALANINE AMINOTRANSFERASE 37 U/L (12-78); ALBUMIN/GLOBULIN RATIO 0.9 (1.1-1.5); ALKALINE PHOSPHATASE 117 IU/L (46-116); ANION GAP 9 (8-16); ASPARTATE AMINO TRANSFERASE 17 U/L (10-37); BILIRUBIN,TOTAL 0.5 MG/DL (0.1-1.0); BLOOD UREA NITROGEN 15 MG/DL (7-18); BUN/CREATININE RATIO 15.8 (6.6-38.0); CHLORIDE 106 MMOL/L (99-107); CREATININE 0.95 MG/DL (0.40-0.90); GLUCOSE 180 MG/DL (70-104); POTASSIUM 3.9 MMOL/L (3.5-5.1); SODIUM 142 MMOL/L (135-145); TOTAL CARBON DIOXIDE 26.8 MMOL/L (24-32); TOTAL PROTEIN 8.3 G/DL (6.4-8.2); eGFR 59 ML/MIN
[2021-11-06] MEDS ORDERED: oxyCODONE/APAP 10/325mg tablet PO ONE (15:20)
[2021-11-06] MEDS ORDERED: normal saline 1000ml 1,000 ML IV SCH (17:55)
[2021-11-06] MEDS ORDERED: acetaminophen 325mg tablet PO PRN (17:55)
[2021-11-06] MEDS ORDERED: ondansetron/PF 4mg/2ml inj IV PRN (17:55)
[2021-11-06] MEDS ORDERED: magnesium 2GM in 50ml NS 50 ML IV PRN (17:55)
[2021-11-06] MEDS ORDERED: magnesium 4gm in 100ml NS 100 ML IV PRN (17:55)
[2021-11-06] MEDS ORDERED: POTASSIUM BICARB 20meq eff tab 20 MEQ TABLET.EFF PO PRN ×2 (17:55)
[2021-11-06] MEDS ORDERED: magnesium Cl slow-release 64mg tablet PO PRN (17:55)
[2021-11-06] MEDS ORDERED: potassium CL 10mEq/100ml bag 100 ML IV PRN (17:55)
[2021-11-06] MEDS ORDERED: hydrALAZINE 20mg/ml inj. IV PRN (18:20)
--- NOTE | 2021-11-06 18:30 | NUR ---
RT evaluated pt. Pt declines BiPap, or nebulizer for RT as well. Pt placed on high flow NC @ 12 lpm. Pt tolerating NC well. HR 126, rr24, pulse ox 94% on 12LPM high flow humidified. PIV site c/d/i s complication or adverse.
--- NOTE | 2021-11-06 18:43 | NUR ---
Advised ERP pt is having a difficult time breathing. Orders recieved for Bipap via RT now. Pt refuses neb, states she just had one and it is not helping. ERP is aware.
[2021-11-06] MEDS: ipratropium/albuterol 3ml nebule NEB SCH ×2 (19:00→22:07)
[2021-11-06 19:15] LABS: MAGNESIUM 2.5 MG/DL (1.5-2.4); POTASSIUM 4.1 MMOL/L (3.5-5.1)
--- NOTE | 2021-11-06 19:45 | NUR ---
Pt eating dinner s complication. Pt pink, laying supine, able to reposition self PRN. Bed in lowest position, wheels locked. Rail 2/2 up. Call wharton in reach.
[2021-11-06] MEDS: heparin, porcine 5000 units/ml vial SQ SCH (20:00)
[2021-11-06] MEDS: docusate sod 100mg capsule PO SCH (20:00)
[2021-11-06] MEDS: K and/or MAG REPLACEMENT MC SCH (20:00)
--- NOTE | 2021-11-06 20:45 | NUR ---
Pt pink, alert, no acute/resp distress. Bed in lowest position, wheels locked, rail 2/2 up, call wharton in reach. Will continue to monitor for acute changes and needs. PIV c/d/i s complication or adverse.
--- NOTE | 2021-11-06 21:45 | NUR ---
Pt pink, alert, no acute/resp distress. Bed in lowest position, wheels locked, rail 2/2 up, call wharton in reach. Will continue to monitor for acute changes and needs.
--- NOTE | 2021-11-06 22:31 | NUR ---
Pt pink, alert, no acute/resp distress. Bed in lowest position, wheels locked, rail 2/2 up, call wharton in reach. Will continue to monitor for acute changes and needs. Will continue to monitor for acute changes and needs.
[2021-11-06] MEDS: methylPREDNISolone sod succ 125mg/2ml vial IV SCH (23:15)
--- NOTE | 2021-11-06 23:18 | NUR ---
Pt states she needs help breathing. Pt did not want a breathing treatment earlier however is now accepting of treatment. RT paged, Pt medicated with neb and steroids as ordered. Paged Dr Hartmann for orders for pain meds, cough meds, and re-evaluate pt breathing.
--- NOTE | 2021-11-07 00:01 | NUR ---
Spoke with Dr Gardner about pt and phone call with in house doctor. Dr. Gardner to bedside to evaluate pt.
--- NOTE | 2021-11-07 00:04 | NUR ---
Pt still refuses BiPap, agrees to intubation IF she can no longer talk or tell us she does not want to be intubated secondary to her breathing and respiratory status. Pt. able to speak in one to four word senctences. Pt pursed lip breathing, near tri-pod positioning. No drooling or oral secretions. PIV sites c/d/i so complication.
[2021-11-07] MEDS ORDERED: benzonatate 100mg capsule PO ONE (00:05)
[2021-11-07] MEDS ORDERED: HYDROcodone/acetaminophen 5mg/325mg tablet PO ONE (00:05)
--- NOTE | 2021-11-07 01:03 | NUR ---
Pt pink, alert, no acute/resp distress. Bed in lowest position, wheels locked, rail 2/2 up, call wharton in reach. Will continue to monitor for acute changes and needs. Will continue to monitor for acute changes and needs. PIV c/d/i s complication or adverse.
[2021-11-07] MEDS: ipratropium/albuterol 3ml nebule NEB SCH ×5 (02:04→19:24)
--- NOTE | 2021-11-07 02:50 | NUR ---
Patient in room PCU 3015. I have received report from PARIS Breen and had the opportunity to ask questions and assume patient care.
--- NOTE | 2021-11-07 02:56 | NUR ---
Report called to floor. Pt pink, able to speak in complex complete senctences. PIV sites c/d/i s s/s complication or adverse. Pt transported via bed.
[2021-11-07 03:30] VITALS: BP 157/69
--- NOTE | 2021-11-07 06:15 | NUR ---
Patient in room PCU 3015. I have received report from Maria Del Carmen TOLEDO and had the opportunity to ask questions and assume patient care.
[2021-11-07 06:45] LABS: BASOPHILS % (AUTO) 0.2 % (0-1); EOSINOPHILS % (AUTO) 0 % (0-6); HEMATOCRIT 43.8 % (35.0-45.0); HEMOGLOBIN 14.7 g/dl (12.0-16.0); LYMPHOCYTES # (AUTO) 0.5 X10'3 (1.1-4.8); LYMPHOCYTES % (AUTO) 6.7 % (21-51); MEAN CORPUSCULAR HGB CONC 33.5 g/dL (33.0-36.5); MEAN CORPUSCULAR VOLUME 92.7 FL (78-98); MONOCYTES # (AUTO) 0.1 X10'3 (0-0.9); MONOCYTES % (AUTO) 1.1 % (2-12); NEUTROPHILS # (AUTO) 7.4 X10'3 (1.8-7.7); PLATELET COUNT 221 X10'3 (140-440); RED BLOOD COUNT 4.73 X10'6 (4.20-5.60); RED CELL DISTRIBUTION WIDTH 14.4 % (11.5-14.5)
--- NOTE | 2021-11-07 06:45 | NUR ---
Problems reprioritized. Patient report given, questions answered & plan of care reviewed with PARIS Romano.
[2021-11-07 06:57] LABS: ALBUMIN 3.2 G/DL (3.4-5.0); ANION GAP 11 (8-16); BLOOD UREA NITROGEN 15 MG/DL (7-18); BUN/CREATININE RATIO 15.2 (6.6-38.0); CHLORIDE 107 MMOL/L (99-107); CREATININE 0.99 MG/DL (0.40-0.90); GLUCOSE 252 MG/DL (70-104); MAGNESIUM 2.4 MG/DL (1.5-2.4); POTASSIUM 4.3 MMOL/L (3.5-5.1); SODIUM 139 MMOL/L (135-145); eGFR 56 ML/MIN
[2021-11-07 07:00] VITALS: BP 95/75
[2021-11-07] MEDS: K and/or MAG REPLACEMENT MC SCH ×2 (07:19→20:00)
[2021-11-07] MEDS: docusate sod 100mg capsule PO SCH ×2 (07:26→20:00)
[2021-11-07] MEDS: methylPREDNISolone sod succ 125mg/2ml vial IV SCH ×2 (07:27→15:17)
[2021-11-07] MEDS: heparin, porcine 5000 units/ml vial SQ SCH ×2 (07:28→20:00)
[2021-11-07] MEDS ORDERED: pantoprazole 40mg Tablet.DR PO SCH (07:30)
--- NOTE | 2021-11-07 10:15 | NUR ---
Asked patient about how she felt after receiving norco 5/325 mg last night at 1215.
[2021-11-07 11:00] VITALS: BP 106/61
[2021-11-07] MEDS ORDERED: guaiFENesin/codeine phos 10ml UD oral syrup PO PRN (14:45)
[2021-11-07 15:00] VITALS: BP 123/59
--- NOTE | 2021-11-07 15:35 | NUR ---
Page Sent promotional table spacer PAGER ID: [phone] MESSAGE: [id number] Jamshid. Pt on BL O2 of 2L stating 93%. Wants to know if she can go home. Juan Antonio BENSON
[2021-11-07 18:00] VITALS: BP 127/56
--- NOTE | 2021-11-07 18:20 | NUR ---
Problems reprioritized. Patient report given, questions answered & plan of care reviewed with Skyla TOLEDO.
[2021-11-07] MEDS ORDERED: OXYC1TAB17 PO (20:49)
[2021-11-07] MEDS ORDERED: AZEL6DRO5 EACHEYE (20:49)
[2021-11-07] MEDS ORDERED: oxyCODONE/APAP 10/325mg tablet PO PRN (21:15)
[2021-11-07] MEDS ORDERED: albuterol 2.5 MG/3 ML nebule NEB PRN (21:15)
[2021-11-07] MEDS ORDERED: fentaNYL 12 MCG/hour patch.TD72 TD SCH (22:00)
--- NOTE | 2021-11-07 22:06 | NUR ---
RN entered patient room after receiving report, patient c/o pain in legs, chronic. States she takes Percocet at home and hasn't received any pain medications today. RN informed patient that I will checked orders and see what is available to her for pain control. After RN checked EMAR I informed patient that the only thing available PRN is Tylenol, patient became upset and stated that will not work. RN asked to clarify home pain medications so a page can be sent to the doctor to figure out pain control. Patient again stated she takes Percocet 10-325mg every 8 hours as needed and has a Fentanyl patch on currently that she uses at home. RN asked the dose and patient said they are weaning her down and she has a 12mcg patch on. RN informed patient that I will inform the distribution specialist doctor of all this info and see what can be done for better pain control. Patient did state, "the doctor better order something because if not I have my home medications and I will take a pill myself whether they say I can or not." RN reinforced to patient that is not safe for her to take medications that staff is not aware off, to many narcotics can cause respiratory depression. [address] Peña and per doctor she currently does want any PO medications with patient having a Fentanyl patch on. RN noted no fentanyl patch ordered in EMAR, per charge nurse patient should have Fentanyl patch removed due to being on prior to hospitalization. RN also informed charge that patient has home medications in room and has stated she will take those if additional pain medications are not prescribed and given. [address] Peña again informing her Fentanyl patch patient wearing is not on EMAR and due to coming into the hospital with it on it will need to be removed and asked to see if once it is removed patient can have PO PRN pain medications. Dr Peña stated she will look into the patient chart and see what is best course of action. RN entered patient room after speaking with doctor and informed her that per hospital policy the outside Fentanyl patch needs to be removed , her home medications need to be stored in the pharmacy until discharge and hospital medications will be ordered and given. Patient stated "No, I'm not taking this off, I'll leave, I'll call for a ride, you aren't taking my patch off me." Patient became upset and agitated and stated she wanted to leave AMA. Dr Peña and charge nurse informed. Patient removed her tele monitor and RN removed bilateral IVs. Patient continued to be upset and refused to sign AMA form initially, wanted to see charge nurse and doctor. Dr Peña did come see and speak with patient along with charge nurse. She eventually signed AMA form and was escorted to the elevators, per patient her daughter was waiting for her downstairs to give her a ride home.
== END 2021-11-07 21:35 | disposition left against medical advice (07) ==
LOC: ER 14:10 → ED HOLD 18:01 → INTOOBSV 18:01 → PCU 3S 11-07 03:05
PROVIDERS: ADMIT Internal Medicine; ATTEND Internal Medicine
DX: J96.00 Acute respiratory failure, unspecified whether with hypoxia or hypercapnia (principal); J44.1 Chronic obstructive pulmonary disease with (acute) exacerbation; Z87.891 Personal history of nicotine dependence; G89.29 Other chronic pain; R03.0 Elevated blood-pressure reading, without diagnosis of hypertension; M45.9 Ankylosing spondylitis of unspecified sites in spine; Z28.310 Unvaccinated for COVID-19; Z53.29 Procedure and treatment not carried out because of patient's decision for other reasons
CPT/HCPCS: 36415; 71045; 80048; 80053; 83735; 83880; 84132; 84145; 84484; 85025; 87081; 93005; 94640; 94760; 96361; 96365; 96368; 96372; 96375; 96376; 99285; G0378; J0696; J1644; J2930; J3475; J7030; A7015